=== PATIENT | male | born 1965 | race Caucasian/White ===

== ENCOUNTER 2019-02-05 16:15 | Emergency (ER) | payer OTHER ==
[2019-02-05] MEDS ORDERED: Sodium Chloride 0.9% 10 ML Syringe FLUSH PRN (16:32)
[2019-02-05] MEDS ORDERED: Sodium Chloride 0.9% 2.5 ML Syringe FLUSH PRN (16:32)
--- NOTE | 2019-02-05 16:33 | EDM.PDOC ---
ED HPI GENERAL MEDICAL PROBLEM - General Chief Complaint: Cardiovascular Problem Stated Complaint: SOB,CHEST PAIN Time Seen by Provider: 02/05/19 16:21 Source of Information: Reports: Patient History Limitations: Reports: No Limitations - History of Present Illness INITIAL COMMENTS - FREE TEXT/NARRATIVE: History of present illness: []Patient has had 5 days of intermittent left-sided chest pain across his upper pectoralis muscle area improves with raising his arm. He states this last episode started 2 hours ago while he was feeling stressed. He has a hiatal hernia and thought that it had been acting up in the last few days causing his discomfort. He denies any recent illnesses fevers chills cough or shortness of breath. He is refusing any medications including aspirin and nitroglycerin. Patient's usual blood pressure is 120s/70s but presented with 170/130. She also complains of muscle cramping. Review of systems: As per history of present illness and below otherwise all systems reviewed and negative. Past medical history: As per history of present illness and as reviewed below otherwise noncontributory. Surgical history: As per history of present illness and as reviewed below otherwise noncontributory. Social history: No reported history of drug or alcohol abuse. Family history: As per history of present illness and as reviewed below otherwise noncontributory. Physical exam: General: Well developed, well nourished in NAD HEENT: Atraumatic, normocephalic, pupils reactive, negative for conjunctival pallor or scleral icterus, mucous membranes moist, throat clear, neck supple, nontender, trachea midline. Lungs: Clear to auscultation, breath sounds equal bilaterally, chest nontender. Heart: S1S2, regular, negative for clicks, rubs, or JVD. Abdomen: NABS, Soft, nondistended, nontender. Negative for masses or hepatosplenomegaly. Negative for costovertebral tenderness. Pelvis: Stable nontender. Genitourinary: Deferred. Rectal: Deferred. Extremities: Atraumatic, negative for cords or calf pain. Neurovascular unremarkable. Neuro: Awake, alert, oriented. Cranial nerves II through XII unremarkable. Cerebellum unremarkable. Motor and sensory unremarkable throughout. Exam nonfocal. Skin:warm and dry Diagnostics: CBC, chest x-ray, chemistry, troponin, d-dimer, EKG Therapeutics: Patient refused aspirin and nitroglycerin, did get 1 dose of Lopressor IV ED Course: Stable Impression: Chest pain Prescriptions: Plan: Definitive disposition and diagnosis as appropriate pending reevaluation and review of above. 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 Gastrointestinal History: Reports: Hiatal Hernia Genitourinary History: Reports: Prostate Disorder Musculoskeletal History: Reports: None Neurological History: Reports: None Psychiatric History: Reports: Anxiety Endocrine/Metabolic History: Reports: Hypothyroidism Hematologic History: Reports: None Immunologic History: Reports: None Oncologic (Cancer) History: Reports: Other (See Below) Other Oncologic History: stage 3 testicular, stage 4 prostate cancer Dermatologic History: Reports: None - Infectious Disease History Infectious Disease History: Reports: Chicken Pox, Measles, Mumps - Past Surgical History Head Surgeries/Procedures: Reports: None HEENT Surgical History: Reports: None Cardiovascular Surgical History: Reports: None Respiratory Surgical History: Reports: None GI Surgical History: Reports: None Male Surgical History: Reports: Prostatectomy Endocrine Surgical History: Reports: None Neurological Surgical History: Reports: None Musculoskeletal Surgical History: Reports: None Oncologic Surgical History: Reports: None Dermatological Surgical History: Reports: None Social & Family History - Family History Family Medical History: Noncontributory - Tobacco Use Smoking Status *Q: Never Smoker Second Hand Smoke Exposure: No - Caffeine Use Caffeine Use: Reports: Coffee - Recreational Drug Use Recreational Drug Use: No ED ROS GENERAL - Review of Systems Review Of Systems: See Below ED EXAM, GENERAL - Physical Exam Exam: See Below Course - Vital Signs Last Recorded V/S: Last Vital Signs Temp 96.4 F 02/05/19 16:18 Pulse 68 02/05/19 16:43 Resp 18 02/05/19 16:43 BP 148/90 H 02/05/19 16:43 Pulse Ox 98 02/05/19 16:43 - Orders/Labs/Meds Orders: Active Orders 24 hr Category Date Time Status EKG Documentation Completion [RC] STAT Care 02/05/19 16:17 Active Sodium Chloride 0.9% [Normal Saline] 1,000 ml Med 02/05/19 17:25 Active IV .Bolus Sodium Chloride 0.9% [Saline Flush] Med 02/05/19 16:32 Active 10 ml FLUSH ASDIRECTED PRN Sodium Chloride 0.9% [Saline Flush] Med 02/05/19 16:32 Active 2.5 ml FLUSH ASDIRECTED PRN Saline Lock Insert [OM.PC] Stat Oth 02/05/19 16:32 Ordered Medication Orders Sodium Chloride (Normal Saline) 1,000 mls @ 999 mls/hr IV .Bolus ONE Stop: 02/05/19 18:25 Last Admin: 02/05/19 17:31 Dose: 999 mls/hr Sodium Chloride (Saline Flush) 10 ml FLUSH ASDIRECTED PRN PRN Reason: Keep Vein Open Last Admin: 02/05/19 16:36 Dose: 10 ml Sodium Chloride (Saline Flush) 2.5 ml FLUSH ASDIRECTED PRN PRN Reason: Keep Vein Open Last Admin: 02/05/19 16:36 Dose: 2.5 ml Labs: Laboratory Tests 02/05/19 02/05/19 02/05/19 Range/Units 16:20 16:20 16:20 WBC 5.94 (4.0-11.0) K/uL RBC 4.62 (4.50-5.90) M/uL Hgb 13.3 (13.0-17.0) g/dL Hct 41.0 (38.0-50.0) % MCV 88.7 (80.0-98.0) fL MCH 28.8 (27.0-32.0) pg MCHC 32.4 (31.0-37.0) g/dL RDW Std Deviation 46.0 (28.0-62.0) fl RDW Coeff of Srinivasa 14 (11.0-15.0) % Plt Count 231 (150-400) K/uL MPV 10.70 (7.40-12.00) fL Neut % (Auto) 70.2 (48.0-80.0) % Lymph % (Auto) 17.5 (16.0-40.0) % [place] % (Auto) 8.6 (0.0-15.0) % Eos % (Auto) 3.2 (0.0-7.0) % Baso % (Auto) 0.5 (0.0-1.5) % Neut # (Auto) 4.2 (1.4-5.7) K/uL Lymph # (Auto) 1.0 (0.6-2.4) K/uL [place] # (Auto) 0.5 (0.0-0.8) K/uL Eos # (Auto) 0.2 (0.0-0.7) K/uL Baso # (Auto) 0.0 (0.0-0.1) K/uL Nucleated RBC % 0.0 /100WBC Nucleated RBCs # 0 K/uL D-Dimer, Quantitative 0.23 (0.0-0.50) mg/L FEU Sodium 143 (136-148) mmol/L Potassium 4.0 (3.5-5.1) mmol/L Chloride 109 H (98-107) mmol/L Carbon Dioxide 23.3 (21.0-32.0) mmol/L BUN 22 H (7.0-18.0) mg/dL Creatinine 1.6 H (0.8-1.3) mg/dL Est Cr Clr Drug Dosing 72.53 mL/min Estimated GFR (MDRD) 45.1 ml/min Glucose 152 H (74-106) mg/dL Calcium 10.1 (8.5-10.1) mg/dL Total Bilirubin 0.6 (0.2-1.0) mg/dL AST 26 (15-37) IU/L ALT 29 (14-63) IU/L Alkaline Phosphatase 74 (46-116) U/L Troponin I < 0.050 (0.000-0.056) ng/mL Total Protein 7.3 (6.4-8.2) g/dL Albumin 4.0 (3.4-5.0) g/dL Globulin 3.3 (2.6-4.0) g/dL Albumin/Globulin Ratio 1.2 (0.9-1.6) Meds: Medications Generic Name Dose Route Start Last Admin Trade Name Freq PRN Reason Stop Dose Admin Sodium Chloride 1,000 mls @ 999 mls/hr 02/05/19 17:25 02/05/19 17:31 Normal Saline IV 02/05/19 18:25 999 mls/hr .Bolus ONE Administration Sodium Chloride 10 ml 02/05/19 16:32 02/05/19 16:36 Saline Flush FLUSH 10 ml ASDIRECTED PRN Administration Keep Vein Open Sodium Chloride 2.5 ml 02/05/19 16:32 02/05/19 16:36 Saline Flush FLUSH 2.5 ml ASDIRECTED PRN Administration Keep Vein Open Discontinued Medications Generic Name Dose Route Start Last Admin Trade Name Freq PRN Reason Stop Dose Admin Metoprolol Tartrate 5 mg 02/05/19 16:45 02/05/19 17:28 Lopressor IVPUSH 02/05/19 16:56 Not Given Q5M [place] Departure - Departure Time of Disposition: 17:43 Disposition: Against Medical Advice 07 Condition: Good, Fair Clinical Impression: Uncontrolled hypertension Chest pain Qualifiers: Chest pain type: unspecified Qualified Code(s): R07.9 - Chest pain, unspecified Referrals: PCP,Unknown [Primary Care Provider] - Forms: ED Department Discharge Additional Instructions: The following information is given to patients seen in the emergency department who are being discharged to home. This information is to outline your options for follow-up care. We provide all patients seen in our emergency department with a follow-up referral. The need for follow-up, as well as the timing and circumstances, are variable depending upon the specifics of your emergency department visit. If you don't have a primary care physician on staff, we will provide you with a referral. We always advise you to contact your personal physician following an emergency department visit to inform them of the circumstance of the visit and for follow-up with them and/or the need for any referrals to a consulting specialist. The emergency department will also refer you to a specialist when appropriate. This referral assures that you have the opportunity for follow-up care with a specialist. All of these measure are taken in an effort to provide you with optimal care, which includes your follow-up. Under all circumstances we always encourage you to contact your private physician who remains a resource for coordinating your care. When calling for follow-up care, please make the office aware that this follow-up is from your recent emergency room visit. If for any reason you are refused follow-up, please contact the [facility] Emergency Department at and asked to speak to the emergency department charge nurse. Take meds as directed, follow up with your primary care physician, return to ER if symptoms worsen or change. Take baby aspirin daily if tolerated. [facility] [address] [place] [id number] - My Orders Last 24 Hours: My Active Orders 02/05/19 16:32 Sodium Chloride 0.9% [Saline Flush] 10 ml FLUSH ASDIRECTED PRN Sodium Chloride 0.9% [Saline Flush] 2.5 ml FLUSH ASDIRECTED PRN Saline Lock Insert [OM.PC] Stat 02/05/19 17:25 Sodium Chloride 0.9% [Normal Saline] 1,000 ml IV .Bolus - Assessment/Plan Last 24 Hours: My Active Orders 02/05/19 16:32 Sodium Chloride 0.9% [Saline Flush] 10 ml FLUSH ASDIRECTED PRN Sodium Chloride 0.9% [Saline Flush] 2.5 ml FLUSH ASDIRECTED PRN Saline Lock Insert [OM.PC] Stat 02/05/19 17:25 Sodium Chloride 0.9% [Normal Saline] 1,000 ml IV .Bolus
[2019-02-05] MEDS: Metoprolol Tartrate 5 MG/5 ML SDV IVPUSH SCH ×2 (16:35→17:28)
--- NOTE | 2019-02-05 16:58 | CR ---
Indication: Shortness of breath. Technique: Single AP portable view of the chest was obtained. Comparison: None Findings: Mild levoscoliosis of the thoracic spine is identified. Heart is normal in size. The lungs are clear. No infiltrate, pleural effusion, or pneumothorax is identified. Impression: No acute cardiopulmonary process. Dictated by Kathrin Mccabe MD @ Feb 05 2019 4:56PM Signed by Dr. Kathrin Mccabe @ Feb 05 2019 4:57PM
[2019-02-05 17:15] LABS: BLOOD UREA NITROGEN,BUN 22 mg/dL (7.0-18.0); CARBON DIOXIDE,CO2 23.3 mmol/L (21.0-32.0); CHLORIDE,CL 109 mmol/L (98-107); GLUCOSE RANDOM 152 mg/dL (74-106); SODIUM,NA 143 mmol/L (136-148)
[2019-02-05] MEDS ORDERED: Sodium Chloride 0.9% 1,000 ML IV ONE (17:25)
== END 2019-02-05 17:47 | disposition left against medical advice (07) ==
LOC: MW.ED 16:15
DX: R07.9 Chest pain, unspecified (principal); I10 Essential (primary) hypertension; E03.9 Hypothyroidism, unspecified; Z79.899 Other long term (current) drug therapy; Z90.79 Acquired absence of other genital organ(s)
CPT/HCPCS: 71045; 80053; 84484; 85025; 85379; 93005; 96374; 99285; J3490; J7040

== ENCOUNTER 2019-08-22 18:40 | Emergency (ER) | payer OTHER ==
--- NOTE | 2019-08-22 19:29 | EDM.PDOC ---
ED HPI GENERAL MEDICAL PROBLEM - General Chief Complaint: Genitourinary Problem Stated Complaint: BLOOD IN URINE Time Seen by Provider: 08/22/19 19:28 Source of Information: Reports: Patient History Limitations: Reports: No Limitations - History of Present Illness INITIAL COMMENTS - FREE TEXT/NARRATIVE: HISTORY AND PHYSICAL: History of present illness: Patient is a 54-year-old male presents to the ED with complaint of blood in his urine. Patient states he just drove up from [place] and since being home he has had multiple bloody urinations with a small amount of clotting. Patient has a history of prostate cancer in 2017 and had undergone radiation. He states he is in remission but had trouble with proctitis after the radiation and was told he could develop cystitis as well. He states states he does not have a lot of feeling in his genital area due to the radiation and does have a penis implant but states he has a little bit of burning with urination. Patient states he has only had diet soda to drink in the last 24 hours and has not hydrated well. He denies fevers, chills, nausea, vomiting, diarrhea, abdominal pain, flank pain, cough, chest pain, shortness of breath. Patient does follow up with Dr. Sosa. Review of systems: As per history of present illness and below otherwise all systems reviewed and negative. Past medical history: As per history of present illness and as reviewed below otherwise noncontributory. Surgical history: As per history of present illness and as reviewed below otherwise noncontributory. Social history: No reported history of drug or alcohol abuse. Family history: As per history of present illness and as reviewed below otherwise noncontributory. Physical exam: General: Patient sitting comfortably in no acute distress and nontoxic appearing HEENT: Atraumatic, normocephalic, pupils reactive, negative for conjunctival pallor or scleral icterus, mucous membranes moist, throat clear, neck supple, nontender, trachea midline. No meningeal signs. Lungs: Clear to auscultation, breath sounds equal bilaterally, chest nontender. Heart: S1S2, regular, negative for clicks, rubs, or overt murmur. Abdomen: Soft, nondistended, nontender. Negative for masses or hepatosplenomegaly. Negative for costovertebral tenderness. No rigidity, rebound , guarding. Pelvis: Stable nontender. Genitourinary: Deferred. Rectal: Deferred. Extremities: Atraumatic, negative for cords or calf pain. Neurovascular unremarkable. Neuro: Awake, alert, oriented. Cranial nerves II through XII unremarkable. Cerebellum unremarkable. Motor and sensory unremarkable throughout. Exam nonfocal. Notes: Diagnostics: UA, CBC, CMP Therapeutics: 1L NS IV Prescriptions: Bactrim Impression: UTI, gross hematuria Plan: Drink plenty of fluids and take antibiotic as prescribed Follow up with urology, please call the number provided to schedule an appointment Return to ED as needed as discussed Definitive disposition and diagnosis as appropriate pending reevaluation and review of above. - Related Data Allergies Allergy/AdvReac Type Severity Reaction Status Date / Time No Known Allergies Allergy Verified 08/22/19 19:32 Home Meds: Home Meds Levothyroxine 50 mcg PO DAILY 02/05/19 [History] Testosterone 1 dose TOP DAILY 02/05/19 [History] Aspirin [Ecotrin EC] 81 mg PO DAILY 08/22/19 [History] Cholecalciferol (Vitamin D3) [Vitamin D] 1,000 units PO DAILY 08/22/19 [History] Fish Oil/[place]-3 Fatty Acids [Fish Oil 1,000 MG] 1,000 units PO DAILY 08/22/19 [ History] Multivit with Iron,Minerals [Complete Senior] 1 tab PO DAILY 08/22/19 [History] Quercetin Dihydrate 1 tab PO DAILY 08/22/19 [History] Past Medical History HEENT History: Reports: None Cardiovascular History: Reports: Other (See Below) Other Cardiovascular History: hx of having "heart episodes" Respiratory History: Reports: None, Pulmonary Fibrosis, Other (See Below) 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 Gastrointestinal History: Reports: Hiatal Hernia Genitourinary History: Reports: Prostate Disorder Musculoskeletal History: Reports: None Neurological History: Reports: None Psychiatric History: Reports: Anxiety Endocrine/Metabolic History: Reports: Hypothyroidism Hematologic History: Reports: None Immunologic History: Reports: None Oncologic (Cancer) History: Reports: Other (See Below) Other Oncologic History: stage 3 testicular, stage 4 prostate cancer Dermatologic History: Reports: None - Infectious Disease History Infectious Disease History: Reports: Chicken Pox, Measles, Mumps - Past Surgical History Head Surgeries/Procedures: Reports: None HEENT Surgical History: Reports: None Cardiovascular Surgical History: Reports: None Respiratory Surgical History: Reports: None GI Surgical History: Reports: None Male Surgical History: Reports: Prostatectomy Endocrine Surgical History: Reports: None Neurological Surgical History: Reports: None Musculoskeletal Surgical History: Reports: None Oncologic Surgical History: Reports: None Dermatological Surgical History: Reports: None Social & Family History - Family History Family Medical History: Noncontributory - Caffeine Use Caffeine Use: Reports: Coffee ED ROS GENERAL - Review of Systems Review Of Systems: Comprehensive ROS is negative, except as noted in HPI. ED EXAM, RENAL/ - Physical Exam Exam: See Below (see dictation) Course - Vital Signs Last Recorded V/S: Last Vital Signs Temp 96.9 F 08/22/19 19:26 Pulse 68 08/22/19 19:26 Resp 18 08/22/19 19:26 BP 137/95 H 08/22/19 19:26 Pulse Ox 96 08/22/19 19:26 - Orders/Labs/Meds Orders: Active Orders 24 hr Category Date Time Status CULTURE URINE [RM] Stat Lab 08/22/19 20:45 Received Sodium Chloride 0.9% [Saline Flush] Med 08/22/19 19:59 Active 10 ml FLUSH ASDIRECTED PRN Sodium Chloride 0.9% [Saline Flush] Med 08/22/19 19:59 Active 2.5 ml FLUSH ASDIRECTED PRN Saline Lock Insert [OM.PC] Stat Oth 08/22/19 19:59 Ordered Medication Orders Sodium Chloride (Saline Flush) 10 ml FLUSH ASDIRECTED PRN PRN Reason: Keep Vein Open Sodium Chloride (Saline Flush) 2.5 ml FLUSH ASDIRECTED PRN PRN Reason: Keep Vein Open Labs: Laboratory Tests 08/22/19 08/22/19 08/22/19 Range/Units 20:00 20:00 20:45 WBC 4.55 (4.0-11.0) K/uL RBC 4.64 (4.50-5.90) M/uL Hgb 13.6 (13.0-17.0) g/dL Hct 40.9 (38.0-50.0) % MCV 88.1 (80.0-98.0) fL MCH 29.3 (27.0-32.0) pg MCHC 33.3 (31.0-37.0) g/dL RDW Std Deviation 44.1 (28.0-62.0) fl RDW Coeff of Srinivasa 14 (11.0-15.0) % Plt Count 210 (150-400) K/uL MPV 10.90 (7.40-12.00) fL Neut % (Auto) 59.8 (48.0-80.0) % Lymph % (Auto) 23.3 (16.0-40.0) % [place] % (Auto) 11.4 (0.0-15.0) % Eos % (Auto) 5.1 (0.0-7.0) % Baso % (Auto) 0.4 (0.0-1.5) % Neut # (Auto) 2.7 (1.4-5.7) K/uL Lymph # (Auto) 1.1 (0.6-2.4) K/uL [place] # (Auto) 0.5 (0.0-0.8) K/uL Eos # (Auto) 0.2 (0.0-0.7) K/uL Baso # (Auto) 0.0 (0.0-0.1) K/uL Nucleated RBC % 0.0 /100WBC Nucleated RBCs # 0 K/uL Sodium 143 (136-148) mmol/L Potassium 3.9 (3.5-5.1) mmol/L Chloride 106 (98-107) mmol/L Carbon Dioxide 25.9 (21.0-32.0) mmol/L BUN 15 (7.0-18.0) mg/dL Creatinine 1.4 H (0.8-1.3) mg/dL Est Cr Clr Drug Dosing 82.89 mL/min Estimated GFR (MDRD) 52.6 ml/min Glucose 111 H (74-106) mg/dL Calcium 9.0 (8.5-10.1) mg/dL Total Bilirubin 0.5 (0.2-1.0) mg/dL AST 27 (15-37) IU/L ALT 45 (14-63) IU/L Alkaline Phosphatase 71 (46-116) U/L Total Protein 6.7 (6.4-8.2) g/dL Albumin 3.7 (3.4-5.0) g/dL Globulin 3.0 (2.6-4.0) g/dL Albumin/Globulin Ratio 1.2 (0.9-1.6) Urine Color RED Urine Appearance BLOODY Urine pH 6.5 (5.0-8.0) Ur Specific [place] 1.015 (1.001-1.035) Urine Protein >=300 H (NEGATIVE) mg/dL Urine Glucose (UA) 100 H (NEGATIVE) mg/dL Urine Ketones 15 H (NEGATIVE) mg/dL Urine Occult Blood LARGE H (NEGATIVE) Urine Nitrite POSITIVE H (NEGATIVE) Urine Bilirubin SMALL H (NEGATIVE) Urine Ictotest NEGATIVE Urine Urobilinogen 4.0 H (<2.0) EU/dL Ur Leukocyte Esterase MODERATE H (NEGATIVE) Urine RBC TOO NUMEROUS TO CT (0-2/HPF) Urine WBC 2-3 (0-5/HPF) Ur Epithelial Cells NOT SEEN (NONE-FEW) Urine Bacteria FEW (NEGATIVE) Meds: Medications Generic Name Dose Route Start Last Admin Trade Name Freq PRN Reason Stop Dose Admin Sodium Chloride 10 ml 08/22/19 19:59 Saline Flush FLUSH ASDIRECTED PRN Keep Vein Open Sodium Chloride 2.5 ml 08/22/19 19:59 Saline Flush FLUSH ASDIRECTED PRN Keep Vein Open Discontinued Medications Generic Name Dose Route Start Last Admin Trade Name Freq PRN Reason Stop Dose Admin Sodium Chloride 1,000 mls @ 999 mls/hr 08/22/19 19:59 08/22/19 20:05 Normal Saline IV 08/22/19 20:59 999 mls/hr STAT ONE Administration Departure - Departure Time of Disposition: 21:15 Disposition: Home, Self-Care 01 Condition: Good Clinical Impression: UTI (urinary tract infection), Gross hematuria - Discharge Information Referrals: PCP,None [Primary Care Provider] - Forms: ED Department Discharge Additional Instructions: The following information is given to patients seen in the emergency department who are being discharged to home. This information is to outline your options for follow-up care. We provide all patients seen in our emergency department with a follow-up referral. The need for follow-up, as well as the timing and circumstances, are variable depending upon the specifics of your emergency department visit. If you don't have a primary care physician on staff, we will provide you with a referral. We always advise you to contact your personal physician following an emergency department visit to inform them of the circumstance of the visit and for follow-up with them and/or the need for any referrals to a consulting specialist. The emergency department will also refer you to a specialist when appropriate. This referral assures that you have the opportunity for follow-up care with a specialist. All of these measure are taken in an effort to provide you with optimal care, which includes your follow-up. Under all circumstances we always encourage you to contact your private physician who remains a resource for coordinating your care. When calling for follow-up care, please make the office aware that this follow-up is from your recent emergency room visit. If for any reason you are refused follow-up, please contact the [facility] Emergency Department at and asked to speak to the emergency department charge nurse. [facility] [address] [place] [address] [id number] [address] [address] Drink plenty of fluids and take antibiotic as prescribed Follow up with urology, please call the number provided to schedule an appointment Return to ED as needed as discussed Sepsis Event Note - Focused Exam Vital Signs: Vital Signs Temp Pulse Resp BP Pulse Ox 08/22/19 19:26 96.9 F 68 18 137/95 H 96 Date Exam was Performed: 08/22/19 Time Exam was Performed: 21:12 - My Orders Last 24 Hours: My Active Orders 08/22/19 19:59 Sodium Chloride 0.9% [Saline Flush] 10 ml FLUSH ASDIRECTED PRN Sodium Chloride 0.9% [Saline Flush] 2.5 ml FLUSH ASDIRECTED PRN Saline Lock Insert [OM.PC] Stat 08/22/19 20:45 CULTURE URINE [RM] Stat - Assessment/Plan Last 24 Hours: My Active Orders 08/22/19 19:59 Sodium Chloride 0.9% [Saline Flush] 10 ml FLUSH ASDIRECTED PRN Sodium Chloride 0.9% [Saline Flush] 2.5 ml FLUSH ASDIRECTED PRN Saline Lock Insert [OM.PC] Stat 08/22/19 20:45 CULTURE URINE [RM] Stat
[2019-08-22] MEDS ORDERED: Sodium Chloride 0.9% 1,000 ML IV ONE (19:59)
[2019-08-22] MEDS ORDERED: Sodium Chloride 0.9% 2.5 ML Syringe FLUSH PRN (19:59)
[2019-08-22] MEDS ORDERED: Sodium Chloride 0.9% 10 ML Syringe FLUSH PRN (19:59)
[2019-08-22 20:35] LABS: CARBON DIOXIDE,CO2 25.9 mmol/L (21.0-32.0); POTASSIUM,K 3.9 mmol/L (3.5-5.1)
== END 2019-08-22 21:35 | disposition home or self-care (01) ==
LOC: MW.ED 18:40
DX: N39.0 Urinary tract infection, site not specified (principal); R31.0 Gross hematuria; E03.9 Hypothyroidism, unspecified; Z79.899 Other long term (current) drug therapy; Z79.82 Long term (current) use of aspirin; Z85.46 Personal history of malignant neoplasm of prostate
CPT/HCPCS: 36415; 80053; 81001; 85025; 87086; 96360; 99283-25; J7030

== ENCOUNTER 2020-04-05 08:51 | Inpatient (IN) | payer OTHER ==
[2020-04-05] MEDS ORDERED: Sodium Chloride 0.9% 2.5 ML Syringe FLUSH PRN (09:04)
[2020-04-05] MEDS ORDERED: Sodium Chloride 0.9% 10 ML Syringe FLUSH PRN (09:04)
--- NOTE | 2020-04-05 09:08 | EDM.PDOC ---
ED [facility] GENERAL MEDICAL PROBLEM - General Chief Complaint: Respiratory Problem Stated Complaint: COVID Time Seen by Provider: 04/05/20 09:03 Source of Information: Reports: Patient, Old Records History Limitations: Reports: No Limitations - History of Present Illness INITIAL COMMENTS - FREE TEXT/NARRATIVE: This is a very pleasant 55-year-old man with a past medical history of met astatic prostate cancer (not on chemotherapy or radiation), hypertension, pulmonary fibrosis from bleomycin therapy, depression, hypothyroidism presenting with shortness of breath. He was diagnosed with COVID-19 infection 2 weeks ago at [place]. He reports feeling unwell since the time of diagnosis. Reports worsening shortness of breath over the past 2 weeks. This got markedly worse today which prompted him to call the ambulance. He reports intermittent cough, diarrhea, body aches. His was ill with COVID-19 but has recovered. Primary complaint today is worsening dyspnea. ROS: A 10-point review of systems was negative, except as noted in the HPI (or in the ROS section of this note). Past medical history: Reviewed, no additional pertinent history. Surgical history: Reviewed in system, no additional pertinent history. Social history: Reviewed in system, no additional pertinent history. Family history: Reviewed in system, no additional pertinent history. PHYSICAL EXAM Vital signs reviewed. Nursing notes reviewed. Constitutional: Awake, alert, non-distressed. Head: Normocephalic, atraumatic. Neck: Supple, full range of motion Eyes: EOMI, conjunctiva normal, no discharge, no scleral icterus. Ears, Nose, Throat: External ears and nose normal, moist oral mucosa. Cardiovascular: 2+ radial pulse, capillary refill less than 2 seconds. No lower extremity edema. Pulmonary: Tachypneic, speaking in 4-5 word sentences, nonrebreather mask in place by EMS. Abdomen/GI: Soft, nontender, nondistended, no guarding or rigidity, no masses. Musculoskeletal: No deformities. Integumentary: Appropriate color for ethnicity, warm, dry, no pallor or jaundice, no rash. Neurologic: Alert, answering questions appropriately, normal speech, no facial droop, moving all extremities well. Psychiatric: Appropriate mood and affect, normal thought process. This patient was seen and evaluated during the 2019 SARS-CoV-2 novel coronavirus pandemic period. Community viral transmission is ongoing at time of this encounter and the emergency department is operating under pandemic response procedures. joints, body Pain Score (Numeric/FACES): 6 - Related Data Allergies Allergy/AdvReac Type Severity Reaction Status Date / Time No Known Allergies Allergy Verified 04/05/20 09:04 Home Meds: Home Meds Levothyroxine 50 mcg PO DAILY 02/05/19 [History] Aspirin [Ecotrin EC] 81 mg PO DAILY 08/22/19 [History] Cholecalciferol (Vitamin D3) [Vitamin D] 5,000 units PO DAILY 08/22/19 [History] Docusate Sodium [Colace] 100 mg PO DAILY 04/05/20 [History] Famotidine [Pepcid] 20 mg PO DAILY 04/05/20 [History] Past Medical History HEENT History: Reports: None Cardiovascular History: Reports: Other (See Below) Other Cardiovascular History: hx of having "heart episodes" Respiratory History: Reports: None, Pulmonary Fibrosis, Other (See Below) 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 Gastrointestinal History: Reports: Hiatal Hernia Genitourinary History: Reports: Prostate Disorder Other Genitourinary History: prostate and testicular CA Musculoskeletal History: Reports: None Neurological History: Reports: None Psychiatric History: Reports: Anxiety Endocrine/Metabolic History: Reports: Hypothyroidism Hematologic History: Reports: None Immunologic History: Reports: None Oncologic (Cancer) History: Reports: Other (See Below) Other Oncologic History: stage 3 testicular, stage 4 prostate cancer Dermatologic History: Reports: None - Infectious Disease History Infectious Disease History: Reports: Chicken Pox, Measles, Mumps, Novel Coronavirus - Past Surgical History Head Surgeries/Procedures: Reports: None HEENT Surgical History: Reports: None Cardiovascular Surgical History: Reports: None Respiratory Surgical History: Reports: None GI Surgical History: Reports: None Male Surgical History: Reports: Prostatectomy Endocrine Surgical History: Reports: None Neurological Surgical History: Reports: None Musculoskeletal Surgical History: Reports: None Oncologic Surgical History: Reports: None Dermatological Surgical History: Reports: None Social & Family History - Family History Family Medical History: No Pertinent Family History - Tobacco Use Tobacco Use Status *Q: Never Tobacco User - Caffeine Use Caffeine Use: Reports: Coffee - Recreational Drug Use Recreational Drug Use: No ED ROS GENERAL - Review of Systems Review Of Systems: See Below ED EXAM, GENERAL - Physical Exam Exam: See Below #1 Interpretation EKG Interpretation Comments: 12-Lead ECG Interpretation Acquired: 9:23 AM Rhythm: Sinus rhythm Rate: 73 bpm [place]: Normal Intervals: Normal Ectopy: None RV Strain: No obvious RV strain pattern. ST Segments/T-Waves: No notable changes Acute Ischemic Changes: None apparent Interpretation: No STEMI Course - Vital Signs Text/Narrative:: Differential diagnosis includes but is not limited to: COVID-19 pneumonia, CHF, ACS, PE, pneumonia, pneumothorax, asthma exacerbation, COPD exacerbation, pleural effusion, pericardial effusion, pericarditis, viral URI, influenza, bronchitis, airway foreign body, anxiety state, and many others. Tachypneic on arrival with moderate respiratory distress. Placed on oxygen. IV access established and labs sent. 1 view chest x-ray shows peripheral opacities bilaterally, consistent with known COVID-19 infection. Labs are otherwise reassuring. Normal cell lines, normal electrolytes and renal function. Negative troponin and BNP, normal TSH. 2 sets of blood cultures were sent. 10:56 AM: Oxygen saturations improved on nasal cannula the patient is still tachypneic and has moderate respiratory distress. I do not think he needs BiPAP right now. We are going to give him dexamethasone and remdesivir, discussed risks and benefits and he gave verbal consent. We will plan to admit him to the hospital here if we have Covid bed availability. Page out to Dr. Arellano the hospitalist at [phone]. 12:24 PM: We are still planning for admission. I spoke with the hospitalist Dr. Jose Arellano who agrees to admit. Patient is currently on 6 L by nasal cannula oxygen. We are waiting for an inpatient bed to be ready. Admitted without incident. Last Recorded V/S: Last Vital Signs Temp 35.7 C L 04/05/20 08:55 Pulse 88 04/05/20 15:00 Resp 18 04/05/20 15:00 BP 110/68 04/05/20 15:00 Pulse Ox 98 04/05/20 15:00 - Orders/Labs/Meds Orders: Active Orders 24 hr Category Date Time Status Cardiac Monitoring [RC] . DIRECTED Care 04/05/20 09:05 Active EKG Documentation Completion [RC] STAT Care 04/05/20 09:05 Active Oxygen Therapy, ED [RC] ASDIRECTED Care 04/05/20 09:04 Active Pulse Oximetry [RC] ASDIRECTED Care 04/05/20 09:05 Active CULTURE BLOOD [BC] Stat Lab 04/05/20 09:08 Received CULTURE BLOOD [BC] Stat Lab 04/05/20 10:06 Results Sodium Chloride 0.9% [Saline Flush] Med 04/05/20 09:04 Active 10 ml FLUSH ASDIRECTED PRN Sodium Chloride 0.9% [Saline Flush] Med 04/05/20 09:04 Active 2.5 ml FLUSH ASDIRECTED PRN Blood Culture x2 Reflex Set [OM.PC] Stat Oth 04/05/20 09:04 Ordered Saline Lock Insert [OM.PC] Stat Oth 04/05/20 09:04 Ordered Medication Orders Sodium Chloride (Saline Flush) 10 ml FLUSH ASDIRECTED PRN PRN Reason: Keep Vein Open Sodium Chloride (Saline Flush) 2.5 ml FLUSH ASDIRECTED PRN PRN Reason: Keep Vein Open Labs: Laboratory Tests 04/05/20 04/05/20 04/05/20 Range/Units 09:08 09:08 09:08 WBC 4.97 (4.0-11.0) K/uL RBC 4.61 (4.50-5.90) M/uL Hgb 13.5 (13.0-17.0) g/dL Hct 40.8 (38.0-50.0) % MCV 88.5 (80.0-98.0) fL MCH 29.3 (27.0-32.0) pg MCHC 33.1 (31.0-37.0) g/dL RDW Std Deviation 44.4 (28.0-62.0) fl RDW Coeff of Srinivasa 14 (11.0-15.0) % Plt Count 191 (150-400) K/uL MPV 10.10 (7.40-12.00) fL Neut % (Auto) 83.9 H (48.0-80.0) % Lymph % (Auto) 10.5 L (16.0-40.0) % [place]ila % (Auto) 5.4 (0.0-15.0) % Eos % (Auto) 0.2 (0.0-7.0) % Baso % (Auto) 0.0 (0.0-1.5) % Neut # (Auto) 4.2 (1.4-5.7) K/uL Lymph # (Auto) 0.5 L (0.6-2.4) K/uL [place] # (Auto) 0.3 (0.0-0.8) K/uL Eos # (Auto) 0.0 (0.0-0.7) K/uL Baso # (Auto) 0.0 (0.0-0.1) K/uL Nucleated RBC % 0.0 /100WBC Nucleated RBCs # 0 K/uL INR 1.03 Lactate 1.4 (0.20-2.00) mmol/L Sodium (136-148) mmol/L Potassium (3.5-5.1) mmol/L Chloride (98-107) mmol/L Carbon Dioxide (21.0-32.0) mmol/L BUN (7.0-18.0) mg/dL Creatinine (0.8-1.3) mg/dL Est Cr Clr Drug Dosing mL/min Estimated GFR (MDRD) ml/min Glucose (74-106) mg/dL Calcium (8.5-10.1) mg/dL Total Bilirubin (0.2-1.0) mg/dL AST (15-37) IU/L ALT (14-63) IU/L Alkaline Phosphatase (46-116) U/L Troponin I (0.000-0.056) ng/mL B-Natriuretic Peptide (<100) PG/ML Total Protein (6.4-8.2) g/dL Albumin (3.4-5.0) g/dL Globulin (2.6-4.0) g/dL Albumin/Globulin Ratio (0.9-1.6) TSH 3rd Generation (0.36-3.74) uIU/mL 04/05/20 04/05/20 Range/Units 09:08 09:08 WBC (4.0-11.0) K/uL RBC (4.50-5.90) M/uL Hgb (13.0-17.0) g/dL Hct (38.0-50.0) % MCV (80.0-98.0) fL MCH (27.0-32.0) pg MCHC (31.0-37.0) g/dL RDW Std Deviation (28.0-62.0) fl RDW Coeff of Srinivasa (11.0-15.0) % Plt Count (150-400) K/uL MPV (7.40-12.00) fL Neut % (Auto) (48.0-80.0) % Lymph % (Auto) (16.0-40.0) % Gila % (Auto) (0.0-15.0) % Eos % (Auto) (0.0-7.0) % Baso % (Auto) (0.0-1.5) % Neut # (Auto) (1.4-5.7) K/uL Lymph # (Auto) (0.6-2.4) K/uL [place] # (Auto) (0.0-0.8) K/uL Eos # (Auto) (0.0-0.7) K/uL Baso # (Auto) (0.0-0.1) K/uL Nucleated RBC % /100WBC Nucleated RBCs # K/uL INR Lactate (0.20-2.00) mmol/L Sodium 136 (136-148) mmol/L Potassium 3.7 (3.5-5.1) mmol/L Chloride 102 (98-107) mmol/L Carbon Dioxide 21.0 (21.0-32.0) mmol/L BUN 25 H (7.0-18.0) mg/dL Creatinine 1.3 (0.8-1.3) mg/dL Est Cr Clr Drug Dosing 88.22 mL/min Estimated GFR (MDRD) 57.1 ml/min Glucose 112 H (74-106) mg/dL Calcium 8.7 (8.5-10.1) mg/dL Total Bilirubin 0.7 (0.2-1.0) mg/dL AST 41 H (15-37) IU/L ALT 47 (14-63) IU/L Alkaline Phosphatase 76 (46-116) U/L Troponin I < 0.050 (0.000-0.056) ng/mL B-Natriuretic Peptide 21 (<100) PG/ML Total Protein 7.4 (6.4-8.2) g/dL Albumin 3.2 L (3.4-5.0) g/dL Globulin 4.2 H (2.6-4.0) g/dL Albumin/Globulin Ratio 0.8 L (0.9-1.6) TSH 3rd Generation 3.11 (0.36-3.74) uIU/mL Meds: Medications Generic Name Dose Route Start Last Admin Trade Name Freq PRN Reason Stop Dose Admin Sodium Chloride 10 ml 04/05/20 09:04 Saline Flush FLUSH ASDIRECTED PRN Keep Vein Open Sodium Chloride 2.5 ml 04/05/20 09:04 Saline Flush FLUSH ASDIRECTED PRN Keep Vein Open Discontinued Medications Generic Name Dose Route Start Last Admin Trade Name Freq PRN Reason Stop Dose Admin Dexamethasone 6 mg 04/05/20 10:55 04/05/20 11:47 Decadron IVPUSH 04/05/20 10:56 6 mg ONETIME ONE Administration Remdesivir 200 mg/ Sodium 250 mls @ 250 mls/hr 04/05/20 10:56 04/05/20 11:49 Chloride IV 04/05/20 10:57 250 mls/hr ONETIME ONE Administration Departure - Departure Time of Disposition: 12:25 Disposition: Admitted As Inpatient 65 Condition: Good Clinical Impression: COVID-19 virus infection, Hypoxia - Discharge Information Sepsis Event Note (ED) - Evaluation Sepsis Screening Result: Possible Sepsis Risk - Focused Exam Vital Signs: Vital Signs Temp Pulse Resp BP Pulse Ox 04/05/20 09:45 71 20 124/84 94 L 04/05/20 08:55 35.7 C L 74 24 H 95 - My Orders Last 24 Hours: My Active Orders 04/05/20 09:04 Oxygen Therapy, ED [RC] ASDIRECTED Sodium Chloride 0.9% [Saline Flush] 10 ml FLUSH ASDIRECTED PRN Sodium Chloride 0.9% [Saline Flush] 2.5 ml FLUSH ASDIRECTED PRN Blood Culture x2 Reflex Set [OM.PC] Stat Saline Lock Insert [OM.PC] Stat 04/05/20 09:05 Cardiac Monitoring [RC] . DIRECTED EKG Documentation Completion [RC] STAT Pulse Oximetry [RC] ASDIRECTED 04/05/20 09:08 CULTURE BLOOD [BC] Stat 04/05/20 10:06 CULTURE BLOOD [BC] Stat - Assessment/Plan Last 24 Hours: My Active Orders 04/05/20 09:04 Oxygen Therapy, ED [RC] ASDIRECTED Sodium Chloride 0.9% [Saline Flush] 10 ml FLUSH ASDIRECTED PRN Sodium Chloride 0.9% [Saline Flush] 2.5 ml FLUSH ASDIRECTED PRN Blood Culture x2 Reflex Set [OM.PC] Stat Saline Lock Insert [OM.PC] Stat 04/05/20 09:05 Cardiac Monitoring [RC] . DIRECTED EKG Documentation Completion [RC] STAT Pulse Oximetry [RC] ASDIRECTED 04/05/20 09:08 CULTURE BLOOD [BC] Stat 04/05/20 10:06 CULTURE BLOOD [BC] Stat
[2020-04-05 09:47] LABS: BLOOD UREA NITROGEN,BUN 25 mg/dL (7.0-18.0); CHLORIDE,CL 102 mmol/L (98-107); GLUCOSE RANDOM 112 mg/dL (74-106); POTASSIUM,K 3.7 mmol/L (3.5-5.1); SODIUM,NA 136 mmol/L (136-148)
--- NOTE | 2020-04-05 10:20 | CR ---
Indication: Worsening dyspnea. Hypoxia. Technique: AP portable view of the chest. Comparison: February 05, 2019. Findings: Heart is normal in size. The right hemidiaphragm is elevated. Peripheral opacities are identified bilaterally. No infiltrate, pleural effusion, pneumothorax identified. Impression: Peripheral opacities bilaterally, consistent with [place] Dictated by Kathrin Mccabe MD @ Apr 05 2020 10:17AM Signed by Dr. Kathrin Mccabe @ Apr 05 2020 10:18AM
[2020-04-05] MEDS ORDERED: Dexamethasone 10 MG/ML SDV IVPUSH ONE (10:55)
[2020-04-05] MEDS ORDERED: REMDESIVIR 200 MG in Sodium Chloride 0.9% 250 ML IV ONE (10:56)
[2020-04-05] MEDS ORDERED: Ondansetron 4 MG/2 ML SDV IVPUSH PRN (17:55)
--- NOTE | 2020-04-05 18:05 | PCM.HP.2 ---
H&P History of Present Illness - General Date of Service: 04/05/20 Admit Problem/Dx: Admission Diagnosis/Problem Admission Diagnosis/Problem Hypoxia - History of Present Illness Initial Comments - Free Text/Narative: 55 yo male with pmh of HTN, testicular and prostate cancer with pulmonary fibrosis 2/2 to chemotherapy who presents with several weeks of shortness of breath, headache and fevers. Patient tested positive for COVID five days ago. In the ED he was found to have an O2 sat of 88% on RA. Chest x-ray shows bilateral peripheral opacities. joints, body Pain Score (Numeric/FACES): 6 - Related Data Allergies/Adverse Reactions: Allergies Allergy/AdvReac Type Severity Reaction Status Date / Time No Known Allergies Allergy Verified 04/05/20 09:04 Home Medications: Home Meds Levothyroxine 50 mcg PO DAILY 02/05/19 [History] Aspirin [Ecotrin EC] 81 mg PO DAILY 08/22/19 [History] Cholecalciferol (Vitamin D3) [Vitamin D] 5,000 units PO DAILY 08/22/19 [History] Docusate Sodium [Colace] 100 mg PO DAILY 04/05/20 [History] Famotidine [Pepcid] 20 mg PO DAILY 04/05/20 [History] Past Medical History HEENT History: Reports: None Cardiovascular History: Reports: Other (See Below) Other Cardiovascular History: hx of having "heart episodes" Respiratory History: Reports: None, Pulmonary Fibrosis, Other (See Below) 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 Gastrointestinal History: Reports: Hiatal Hernia Genitourinary History: Reports: Prostate Disorder Other Genitourinary History: prostate and testicular CA Musculoskeletal History: Reports: None Neurological History: Reports: None Psychiatric History: Reports: Anxiety Endocrine/Metabolic History: Reports: Hypothyroidism Hematologic History: Reports: None Immunologic History: Reports: None Oncologic (Cancer) History: Reports: Other (See Below) Other Oncologic History: stage 3 testicular, stage 4 prostate cancer Dermatologic History: Reports: None - Infectious Disease History Infectious Disease History: Reports: Chicken Pox, Measles, Mumps, Novel Coronavirus - Past Surgical History Head Surgeries/Procedures: Reports: None HEENT Surgical History: Reports: None Cardiovascular Surgical History: Reports: None Respiratory Surgical History: Reports: None GI Surgical History: Reports: None Male Surgical History: Reports: Prostatectomy Endocrine Surgical History: Reports: None Neurological Surgical History: Reports: None Musculoskeletal Surgical History: Reports: None Oncologic Surgical History: Reports: None Dermatological Surgical History: Reports: None Social & Family History - Family History Family Medical History: No Pertinent Family History - Tobacco Use Tobacco Use Status *Q: Never Tobacco User Second Hand Smoke Exposure: Yes - Caffeine Use Caffeine Use: Reports: Coffee - Recreational Drug Use Recreational Drug Use: No H&P Review of Systems - Review of Systems: Review Of Systems: Comprehensive ROS is negative, except as noted in HPI. Exam - Exam Exam: See Below - Vital Signs Vital Signs: Last Vital Signs Temp 35.7 C L 04/05/20 17:22 Pulse 65 04/05/20 17:22 Resp 22 H 04/05/20 17:22 BP 120/84 04/05/20 17:22 Pulse Ox 92 L 04/05/20 17:22 Weight: 132.766 kg - Exam General: Alert, Oriented HEENT: Mucosa Moist & [place] Lungs: Normal Respiratory Effort, Decreased Breath Sounds Cardiovascular: Regular Rate, Regular Rhythm GI/Abdominal Exam: Normal Bowel Sounds, Soft, Non-Tender, No Distention Extremities: Non-Tender, No Pedal Edema Skin: Warm, Dry, Intact - Patient Data Lab Results Last 24 hrs: Laboratory Results - last 24 hr 04/05/20 04/05/20 04/05/20 Range/Units 09:08 09:08 09:08 WBC 4.97 (4.0-11.0) K/uL RBC 4.61 (4.50-5.90) M/uL Hgb 13.5 (13.0-17.0) g/dL Hct 40.8 (38.0-50.0) % MCV 88.5 (80.0-98.0) fL MCH 29.3 (27.0-32.0) pg MCHC 33.1 (31.0-37.0) g/dL RDW Std Deviation 44.4 (28.0-62.0) fl RDW Coeff of Srinivasa 14 (11.0-15.0) % Plt Count 191 (150-400) K/uL MPV 10.10 (7.40-12.00) fL Neut % (Auto) 83.9 H (48.0-80.0) % Lymph % (Auto) 10.5 L (16.0-40.0) % [place] % (Auto) 5.4 (0.0-15.0) % Eos % (Auto) 0.2 (0.0-7.0) % Baso % (Auto) 0.0 (0.0-1.5) % Neut # (Auto) 4.2 (1.4-5.7) K/uL Lymph # (Auto) 0.5 L (0.6-2.4) K/uL [place] # (Auto) 0.3 (0.0-0.8) K/uL Eos # (Auto) 0.0 (0.0-0.7) K/uL Baso # (Auto) 0.0 (0.0-0.1) K/uL Nucleated RBC % 0.0 /100WBC Nucleated RBCs # 0 K/uL INR 1.03 Lactate 1.4 (0.20-2.00) mmol/L Sodium (136-148) mmol/L Potassium (3.5-5.1) mmol/L Chloride (98-107) mmol/L Carbon Dioxide (21.0-32.0) mmol/L BUN (7.0-18.0) mg/dL Creatinine (0.8-1.3) mg/dL Est Cr Clr Drug Dosing mL/min Estimated GFR (MDRD) ml/min Glucose (74-106) mg/dL Calcium (8.5-10.1) mg/dL Total Bilirubin (0.2-1.0) mg/dL AST (15-37) IU/L ALT (14-63) IU/L Alkaline Phosphatase (46-116) U/L Troponin I (0.000-0.056) ng/mL B-Natriuretic Peptide (<100) PG/ML Total Protein (6.4-8.2) g/dL Albumin (3.4-5.0) g/dL Globulin (2.6-4.0) g/dL Albumin/Globulin Ratio (0.9-1.6) TSH 3rd Generation (0.36-3.74) uIU/mL 04/05/20 04/05/20 Range/Units 09:08 09:08 WBC (4.0-11.0) K/uL RBC (4.50-5.90) M/uL Hgb (13.0-17.0) g/dL Hct (38.0-50.0) % MCV (80.0-98.0) fL MCH (27.0-32.0) pg MCHC (31.0-37.0) g/dL RDW Std Deviation (28.0-62.0) fl RDW Coeff of Srinivasa (11.0-15.0) % Plt Count (150-400) K/uL MPV (7.40-12.00) fL Neut % (Auto) (48.0-80.0) % Lymph % (Auto) (16.0-40.0) % [place] % (Auto) (0.0-15.0) % Eos % (Auto) (0.0-7.0) % Baso % (Auto) (0.0-1.5) % Neut # (Auto) (1.4-5.7) K/uL Lymph # (Auto) (0.6-2.4) K/uL [place] # (Auto) (0.0-0.8) K/uL Eos # (Auto) (0.0-0.7) K/uL Baso # (Auto) (0.0-0.1) K/uL Nucleated RBC % /100WBC Nucleated RBCs # K/uL INR Lactate (0.20-2.00) mmol/L Sodium 136 (136-148) mmol/L Potassium 3.7 (3.5-5.1) mmol/L Chloride 102 (98-107) mmol/L Carbon Dioxide 21.0 (21.0-32.0) mmol/L BUN 25 H (7.0-18.0) mg/dL Creatinine 1.3 (0.8-1.3) mg/dL Est Cr Clr Drug Dosing 88.22 mL/min Estimated GFR (MDRD) 57.1 ml/min Glucose 112 H (74-106) mg/dL Calcium 8.7 (8.5-10.1) mg/dL Total Bilirubin 0.7 (0.2-1.0) mg/dL AST 41 H (15-37) IU/L ALT 47 (14-63) IU/L Alkaline Phosphatase 76 (46-116) U/L Troponin I < 0.050 (0.000-0.056) ng/mL B-Natriuretic Peptide 21 (<100) PG/ML Total Protein 7.4 (6.4-8.2) g/dL Albumin 3.2 L (3.4-5.0) g/dL Globulin 4.2 H (2.6-4.0) g/dL Albumin/Globulin Ratio 0.8 L (0.9-1.6) TSH 3rd Generation 3.11 (0.36-3.74) uIU/mL Result Diagrams: 04/05/20 09:08 04/05/20 09:08 Dougie Results Last 24 hrs: Microbiology 04/05/20 10:06 Anaerobic Blood Culture - Final Blood - Venous - Lab Draw Sepsis Event Note - Evaluation Sepsis Screening Result: Possible Sepsis Risk - Focused Exam Vital Signs: Vital Signs Temp Pulse Resp BP BP Pulse Ox 04/05/20 17:22 35.7 C L 65 22 H 120/84 92 L 04/05/20 15:00 88 18 110/68 98 04/05/20 14:00 68 17 114/80 97 04/05/20 13:00 70 18 118/86 95 04/05/20 09:45 71 20 124/84 94 L 04/05/20 08:55 35.7 C L 74 24 H 95 Problem List Initiated/Reviewed/Updated: Yes Orders Last 24hrs: Active Orders 24 hr Category Date Time Status Admission Status [Patient Status] [ADT] Stat ADT 04/05/20 11:06 Active Antiembolic Devices [RC] PER UNIT ROUTINE Care 04/05/20 17:58 Ordered Cardiac Monitoring [RC] . DIRECTED Care 04/05/20 09:05 Active EKG Documentation Completion [RC] STAT Care 04/05/20 09:05 Active Oxygen Therapy [RC] PRN Care 04/05/20 17:50 Ordered Pulse Oximetry [RC] ASDIRECTED Care 04/05/20 09:05 Active Up ad Ashley [RC] ASDIRECTED Care 04/05/20 17:50 Ordered VTE/DVT Education [RC] PER UNIT ROUTINE Care 04/05/20 17:50 Ordered Vital Signs [RC] Q4H Care 04/05/20 17:50 Ordered Regular Diet [DIET] Diet 04/05/20 Breakfast Ordered ABO/RH TYPE [BBK] Routine Lab 04/05/20 17:39 Ordered CBC WITH AUTO DIFF [HEME] AM Lab 04/06/20 05:11 Ordered CBC WITH AUTO DIFF [HEME] AM Lab 04/07/20 05:11 Ordered COMPREHENSIVE METABOLIC PN,CMP [CHEM] AM Lab 04/06/20 05:11 Ordered COMPREHENSIVE METABOLIC PN,CMP [CHEM] AM Lab 04/07/20 05:11 Ordered CULTURE BLOOD [BC] Stat Lab 04/05/20 09:08 Received CULTURE BLOOD [BC] Stat Lab 04/05/20 10:06 Results FRESH FROZEN PLASMA [BBK] Routine Lab 04/05/20 17:39 Ordered Enoxaparin [Lovenox] Med 04/05/20 18:00 Ordered 40 mg SUBCUT Q24H Famotidine [Pepcid] Med 04/06/20 09:00 Ordered 20 mg PO DAILY Levothyroxine Med 04/06/20 09:00 Ordered 50 mcg PO DAILY Ondansetron [Zofran] Med 04/05/20 17:55 Ordered 4 mg IVPUSH Q4H PRN Remdesivir (Eua) [Remdesivir (EUA)] 100 mg Med 04/06/20 11:00 Ordered Sodium Chloride 0.9% [Normal Saline] 100 ml IV Q24H Sodium Chloride 0.9% [Saline Flush] Med 04/05/20 09:04 Active 10 ml FLUSH ASDIRECTED PRN Sodium Chloride 0.9% [Saline Flush] Med 04/05/20 09:04 Active 2.5 ml FLUSH ASDIRECTED PRN dexAMETHasone Med 04/06/20 09:00 Ordered 6 mg PO DAILY Blood Culture x2 Reflex Set [OM.PC] Stat Oth 04/05/20 09:04 Ordered Saline Lock Insert [OM.PC] Stat Oth 04/05/20 09:04 Ordered Sequential Compression Device [OM.PC] Per Unit Routine Oth 04/05/20 17:50 Ordered Transfuse Fresh Frozen Plasma [COMM] Routine Oth 04/05/20 17:39 Ordered Resuscitation Status Routine Resus Stat 04/05/20 17:50 Ordered Medication Orders Dexamethasone (Dexamethasone) 6 mg PO DAILY [place] Enoxaparin Sodium (Lovenox) 40 mg SUBCUT Q24H [place] Famotidine (Pepcid) 20 mg PO DAILY [place] Remdesivir 100 mg/ Sodium (Chloride) 100 mls @ 100 mls/hr IV Q24H [place] Stop: 04/09/20 11:59 Levothyroxine Sodium (Synthroid) 50 mcg PO ACBRK [place] Ondansetron HCl (Zofran) 4 mg IVPUSH Q4H PRN PRN Reason: Nausea Sodium Chloride (Saline Flush) 10 ml FLUSH ASDIRECTED PRN PRN Reason: Keep Vein Open Sodium Chloride (Saline Flush) 2.5 ml FLUSH ASDIRECTED PRN PRN Reason: Keep Vein Open Assessment/Plan Comment:: 55 yo male admitted with COVID pneumonia. Patient was explained the FDA EUA authorization of the remdesivir and convalescent plasma and consented to there use. COVID: requiring 6 liters NC, treating with dexamethasone, remdesivir, convalescent plasma, Lovenox, and Levaquin.
[2020-04-05] MEDS: Enoxaparin 40 MG/0.4 ML Syringe SUBCUT SCH (18:53)
[2020-04-05] MEDS: Levofloxacin/Dextrose 5%-Water 750 MG in Premix Bag 1 BAG IV SCH (21:02)
[2020-04-05] MEDS: LORazepam 2 MG/ML SDV IVPUSH PRN (22:34)
[2020-04-06 06:56] LABS: BLOOD UREA NITROGEN,BUN 30 mg/dL (7.0-18.0); CHLORIDE,CL 104 mmol/L (98-107); GLUCOSE RANDOM 118 mg/dL (74-106); POTASSIUM,K 4.1 mmol/L (3.5-5.1); SODIUM,NA 140 mmol/L (136-148)
[2020-04-06] MEDS: LORazepam 2 MG/ML SDV IVPUSH PRN ×2 (07:40→20:38)
[2020-04-06] MEDS: Levothyroxine 50 MCG Tab PO SCH (07:44)
[2020-04-06] MEDS: Dexamethasone 4 MG Tab PO SCH (09:21)
[2020-04-06] MEDS: Famotidine 20 MG Tab PO SCH (09:21)
[2020-04-06] MEDS ORDERED: FLU Vacc QS2020-21 36MOS UP/PF 60 MCG/0.5 ML Syringe IM ONE (10:00)
[2020-04-06] MEDS: REMDESIVIR 100 MG in Sodium Chloride 0.9% 100 ML IV SCH (11:04)
--- NOTE | 2020-04-06 12:51 | PCM.PN ---
- General Info Date of Service: 04/06/20 - Review of Systems Systems Review Comment:: breathing has improved - Patient Data Vitals - Most Recent: Last Vital Signs Temp 35.6 C L 04/06/20 12:38 Pulse 60 04/06/20 12:38 Resp 18 04/06/20 12:38 BP 109/74 04/06/20 12:38 Pulse Ox 96 04/06/20 12:38 Weight - Most Recent: 132.766 kg I&O - Last 24 Hours: Intake & Output 04/05/20 04/06/20 04/06/20 22:59 06:59 14:59 Intake Total 212 80 120 Output Total 500 Balance 212 -420 120 Lab Results Last 24 Hours: Laboratory Results - last 24 hr 04/05/20 04/06/20 04/06/20 Range/Units 18:53 05:33 05:33 WBC 3.30 L (4.0-11.0) K/uL RBC 4.32 L (4.50-5.90) M/uL Hgb 12.4 L (13.0-17.0) g/dL Hct 38.6 (38.0-50.0) % MCV 89.4 (80.0-98.0) fL MCH 28.7 (27.0-32.0) pg MCHC 32.1 (31.0-37.0) g/dL RDW Std Deviation 44.8 (28.0-62.0) fl RDW Coeff of Srinivasa 14 (11.0-15.0) % Plt Count 211 (150-400) K/uL MPV 10.60 (7.40-12.00) fL Neut % (Auto) 73.6 (48.0-80.0) % Lymph % (Auto) 17.0 (16.0-40.0) % Lares % (Auto) 8.8 (0.0-15.0) % Eos % (Auto) 0.3 (0.0-7.0) % Baso % (Auto) 0.3 (0.0-1.5) % Neut # (Auto) 2.4 (1.4-5.7) K/uL Lymph # (Auto) 0.6 (0.6-2.4) K/uL Lares # (Auto) 0.3 (0.0-0.8) K/uL Eos # (Auto) 0.0 (0.0-0.7) K/uL Baso # (Auto) 0.0 (0.0-0.1) K/uL Nucleated RBC % 0.0 /100WBC Nucleated RBCs # 0 K/uL Sodium 140 (136-148) mmol/L Potassium 4.1 (3.5-5.1) mmol/L Chloride 104 (98-107) mmol/L Carbon Dioxide 25.0 (21.0-32.0) mmol/L BUN 30 H (7.0-18.0) mg/dL Creatinine 1.2 (0.8-1.3) mg/dL Est Cr Clr Drug Dosing 95.57 mL/min Estimated GFR (MDRD) > 60.0 ml/min Glucose 118 H (74-106) mg/dL Calcium 9.0 (8.5-10.1) mg/dL Total Bilirubin 0.5 (0.2-1.0) mg/dL AST 34 (15-37) IU/L ALT 46 (14-63) IU/L Alkaline Phosphatase 69 (46-116) U/L Total Protein 7.2 (6.4-8.2) g/dL Albumin 3.0 L (3.4-5.0) g/dL Globulin 4.2 H (2.6-4.0) g/dL Albumin/Globulin Ratio 0.7 L (0.9-1.6) Blood Type A POSITIVE Dougie Results Last 24 Hours: Microbiology 04/05/20 10:06 Aerobic Blood Culture - Preliminary Blood - Venous - Lab Draw NO GROWTH AFTER 1 DAY Anaerobic Blood Culture - Final 04/05/20 09:08 Aerobic Blood Culture - Preliminary Blood - Venous NO GROWTH AFTER 1 DAY Anaerobic Blood Culture - Preliminary NO GROWTH AFTER 1 DAY Med Orders - Current: Current Medications Dexamethasone (Dexamethasone) 6 mg PO DAILY [facility] Last Admin: 04/06/20 09:21 Dose: 6 mg Documented by: Enoxaparin Sodium (Lovenox) 40 mg SUBCUT Q24H [facility] Last Admin: 04/05/20 18:53 Dose: 40 mg Documented by: Famotidine (Pepcid) 20 mg PO DAILY [facility] Last Admin: 04/06/20 09:21 Dose: 20 mg Documented by: Remdesivir 100 mg/ Sodium (Chloride) 100 mls @ 100 mls/hr IV Q24H [facility] Stop: 04/09/20 11:59 Last Admin: 04/06/20 11:04 Dose: 100 mls/hr Documented by: Levofloxacin/Dextrose 750 mg/ (Premix) 150 mls @ 100 mls/hr IV Q24H [facility] Last Admin: 04/05/20 21:02 Dose: 100 mls/hr Documented by: Levothyroxine Sodium (Synthroid) 50 mcg PO ACBRK [facility] Last Admin: 04/06/20 07:44 Dose: Not Given Documented by: Lorazepam (Ativan) 1 mg IVPUSH Q8H PRN PRN Reason: Anxiety Last Admin: 04/06/20 07:40 Dose: 1 mg Documented by: Ondansetron HCl (Zofran) 4 mg IVPUSH Q4H PRN PRN Reason: Nausea Last Admin: 04/05/20 22:34 Dose: 4 mg Documented by: Sodium Chloride (Saline Flush) 10 ml FLUSH ASDIRECTED PRN PRN Reason: Keep Vein Open Sodium Chloride (Saline Flush) 2.5 ml FLUSH ASDIRECTED PRN PRN Reason: Keep Vein Open Discontinued Medications Dexamethasone (Decadron) 6 mg IVPUSH ONETIME ONE Stop: 04/05/20 10:56 Last Admin: 04/05/20 11:47 Dose: 6 mg Documented by: Remdesivir 200 mg/ Sodium (Chloride) 250 mls @ 250 mls/hr IV ONETIME ONE Stop: 04/05/20 10:57 Last Admin: 04/05/20 11:49 Dose: 250 mls/hr Documented by: Influenza Virus Vaccine (Afluria Quad 2019- (3yr Up)) 60 mcg IM .ONCE ONE Stop: 04/06/20 10:01 Last Admin: 04/06/20 10:33 Dose: Not Given Documented by: - Exam General: Alert, Oriented Neck: Supple Lungs: Clear to Auscultation, Normal Respiratory Effort Cardiovascular: Regular Rate, Regular Rhythm GI/Abdominal Exam: Soft, Non-Tender, No Distention Extremities: Non-Tender, No Pedal Edema Skin: Warm, Dry, Intact Neurological: No New Focal Deficit Sepsis Event Note - Evaluation Sepsis Screening Result: No Definite Risk - Focused Exam Vital Signs: Vital Signs Temp Pulse Resp BP Pulse Ox 04/06/20 12:38 35.6 C L 60 18 109/74 96 04/06/20 09:27 35.7 C L 62 19 114/76 90 L 04/06/20 04:35 35.6 C L 55 L 20 116/71 94 L - Problem List Review Problem List Initiated/Reviewed/Updated: Yes - My Orders Last 24 Hours: My Active Orders 04/05/20 17:50 Oxygen Therapy [RC] PRN Up ad Ashley [RC] ASDIRECTED VTE/DVT Education [RC] PER UNIT ROUTINE Vital Signs [RC] Q4H Sequential Compression Device [OM.PC] Per Unit Routine Resuscitation Status Routine 04/05/20 17:55 Ondansetron [Zofran] 4 mg IVPUSH Q4H PRN 04/05/20 17:58 Antiembolic Devices [RC] PER UNIT ROUTINE 04/05/20 18:00 Enoxaparin [Lovenox] 40 mg SUBCUT Q24H 04/05/20 18:43 Influenza Vaccine Charge [RC] .DISCHARGE 04/05/20 18:53 ABO/RH TYPE [BBK] Routine FRESH FROZEN PLASMA [BBK] Routine 04/05/20 19:30 Levofloxacin/Dextrose 5%-Water [Levaquin in D5W 750 MG/150 ML] 750 mg Premix Bag 1 bag IV Q24H 04/05/20 21:28 LORazepam [Ativan] 1 mg IVPUSH Q8H PRN 04/06/20 07:30 Levothyroxine [Synthroid] 50 mcg PO ACBRK 04/06/20 09:00 Famotidine [Pepcid] 20 mg PO DAILY dexAMETHasone 6 mg PO DAILY 04/06/20 11:00 Remdesivir (Eua) [Remdesivir (EUA)] 100 mg Sodium Chloride 0.9% [Normal Saline] 100 ml IV Q24H 04/06/20 12:47 Transfuse Fresh Frozen Plasma [COMM] Routine 04/07/20 05:11 CBC WITH AUTO DIFF [HEME] AM COMPREHENSIVE METABOLIC PN,CMP [CHEM] AM - Plan Plan:: 55 yo male admitted with COVID pneumonia. Patient was explained the FDA EUA authorization of the remdesivir and convalescent plasma and consented to there use. COVID: requiring 4 liters NC, continue with dexamethasone, remdesivir, 2nd unit of convalescent plasma, Lovenox, and Levaquin. Discussed getting a CT angio of chest but patient would prefer not to get one today. PE appears to be unlikely.
[2020-04-06] MEDS: Enoxaparin 40 MG/0.4 ML Syringe SUBCUT SCH (18:05)
[2020-04-06] MEDS: Levofloxacin/Dextrose 5%-Water 750 MG in Premix Bag 1 BAG IV SCH (19:03)
[2020-04-07 06:23] LABS: BLOOD UREA NITROGEN,BUN 33 mg/dL (7.0-18.0); CARBON DIOXIDE,CO2 23.4 mmol/L (21.0-32.0); CHLORIDE,CL 105 mmol/L (98-107); GLUCOSE RANDOM 109 mg/dL (74-106); POTASSIUM,K 3.8 mmol/L (3.5-5.1); SODIUM,NA 141 mmol/L (136-148)
[2020-04-07] MEDS: Dexamethasone 4 MG Tab PO SCH (08:43)
[2020-04-07] MEDS: Levothyroxine 50 MCG Tab PO SCH (08:44)
[2020-04-07] MEDS: Famotidine 20 MG Tab PO SCH (08:45)
[2020-04-07] MEDS: REMDESIVIR 100 MG in Sodium Chloride 0.9% 100 ML IV SCH (11:13)
--- NOTE | 2020-04-07 14:40 | PCM.PN ---
<Jose Jimenes - Last Filed: 04/07/20 14:41> - General Info Date of Service: 04/07/20 Subjective Update: Patient states that he feels better. States that he doesn't feel as short of breath. Still states dry cough throughout the day with fatigue. - Review of Systems General: Reports: Weakness, Fatigue. Denies: Chills HEENT: Denies: Headaches, Visual Changes Pulmonary: Reports: Shortness of Breath, Cough Cardiovascular: Reports: Dyspnea on Exertion. Denies: Chest Pain, Lightheadedness Gastrointestinal: Denies: Abdominal Pain, Diarrhea, Nausea, Vomiting Neurological: Denies: Dizziness, Headache - Patient Data Vitals - Most Recent: Last Vital Signs Temp 96.4 F L 04/07/20 12:00 Pulse 59 L 04/07/20 12:00 Resp 16 04/07/20 12:00 BP 128/73 04/07/20 12:00 Pulse Ox 93 L 04/07/20 12:00 Weight - Most Recent: 132.766 kg I&O - Last 24 Hours: Intake & Output 04/06/20 04/07/20 04/07/20 22:59 06:59 14:59 Intake Total 1371 460 Output Total 1300 Balance 71 460 Lab Results Last 24 Hours: Laboratory Results - last 24 hr 04/05/20 04/07/20 04/07/20 Range/Units 18:53 05:32 05:32 WBC 5.15 (4.0-11.0) K/uL RBC 4.22 L (4.50-5.90) M/uL Hgb 12.2 L (13.0-17.0) g/dL Hct 37.3 L (38.0-50.0) % MCV 88.4 (80.0-98.0) fL MCH 28.9 (27.0-32.0) pg MCHC 32.7 (31.0-37.0) g/dL RDW Std Deviation 42.8 (28.0-62.0) fl RDW Coeff of Srinivasa 13 (11.0-15.0) % Plt Count 232 (150-400) K/uL MPV 10.30 (7.40-12.00) fL Neut % (Auto) 80.7 H (48.0-80.0) % Lymph % (Auto) 11.5 L (16.0-40.0) % Faulkner % (Auto) 6.8 (0.0-15.0) % Eos % (Auto) 1.0 (0.0-7.0) % Baso % (Auto) 0.0 (0.0-1.5) % Neut # (Auto) 4.2 (1.4-5.7) K/uL Lymph # (Auto) 0.6 (0.6-2.4) K/uL Faulkner # (Auto) 0.4 (0.0-0.8) K/uL Eos # (Auto) 0.1 (0.0-0.7) K/uL Baso # (Auto) 0.0 (0.0-0.1) K/uL Nucleated RBC % 0.0 /100WBC Nucleated RBCs # 0 K/uL Sodium 141 (136-148) mmol/L Potassium 3.8 (3.5-5.1) mmol/L Chloride 105 (98-107) mmol/L Carbon Dioxide 23.4 (21.0-32.0) mmol/L BUN 33 H (7.0-18.0) mg/dL Creatinine 1.2 (0.8-1.3) mg/dL Est Cr Clr Drug Dosing 95.57 mL/min Estimated GFR (MDRD) > 60.0 ml/min Glucose 109 H (74-106) mg/dL Calcium 8.9 (8.5-10.1) mg/dL Total Bilirubin 0.5 (0.2-1.0) mg/dL AST 27 (15-37) IU/L ALT 43 (14-63) IU/L Alkaline Phosphatase 65 (46-116) U/L Total Protein 6.9 (6.4-8.2) g/dL Albumin 2.9 L (3.4-5.0) g/dL Globulin 4.0 (2.6-4.0) g/dL Albumin/Globulin Ratio 0.7 L (0.9-1.6) Blood Type A POSITIVE Dougie Results Last 24 Hours: Microbiology 04/05/20 10:06 Aerobic Blood Culture - Preliminary Blood - Venous - Lab Draw NO GROWTH AFTER 2 DAYS Anaerobic Blood Culture - Final 04/05/20 09:08 Aerobic Blood Culture - Preliminary Blood - Venous NO GROWTH AFTER 2 DAYS Anaerobic Blood Culture - Preliminary NO GROWTH AFTER 2 DAYS Med Orders - Current: Current Medications Dexamethasone (Dexamethasone) 6 mg PO DAILY [facility] Last Admin: 04/07/20 08:43 Dose: 6 mg Documented by: Enoxaparin Sodium (Lovenox) 40 mg SUBCUT Q24H [facility] Last Admin: 04/06/20 18:05 Dose: 40 mg Documented by: Famotidine (Pepcid) 20 mg PO DAILY [facility] Last Admin: 04/07/20 08:45 Dose: 20 mg Documented by: Remdesivir 100 mg/ Sodium (Chloride) 100 mls @ 100 mls/hr IV Q24H [facility] Stop: 04/09/20 11:59 Last Admin: 04/07/20 11:13 Dose: 100 mls/hr Documented by: Levofloxacin/Dextrose 750 mg/ (Premix) 150 mls @ 100 mls/hr IV Q24H [facility] Last Admin: 04/06/20 19:03 Dose: 100 mls/hr Documented by: Levothyroxine Sodium (Synthroid) 50 mcg PO ACBRK [facility] Last Admin: 04/07/20 08:44 Dose: 50 mcg Documented by: Lorazepam (Ativan) 1 mg IVPUSH Q8H PRN PRN Reason: Anxiety Last Admin: 04/06/20 20:38 Dose: 1 mg Documented by: Ondansetron HCl (Zofran) 4 mg IVPUSH Q4H PRN PRN Reason: Nausea Last Admin: 04/05/20 22:34 Dose: 4 mg Documented by: Sodium Chloride (Saline Flush) 10 ml FLUSH ASDIRECTED PRN PRN Reason: Keep Vein Open Last Admin: 04/06/20 20:39 Dose: 10 ml Documented by: Sodium Chloride (Saline Flush) 2.5 ml FLUSH ASDIRECTED PRN PRN Reason: Keep Vein Open Last Admin: 04/06/20 20:40 Dose: 2.5 ml Documented by: Discontinued Medications Dexamethasone (Decadron) 6 mg IVPUSH ONETIME ONE Stop: 04/05/20 10:56 Last Admin: 04/05/20 11:47 Dose: 6 mg Documented by: Remdesivir 200 mg/ Sodium (Chloride) 250 mls @ 250 mls/hr IV ONETIME ONE Stop: 04/05/20 10:57 Last Admin: 04/05/20 11:49 Dose: 250 mls/hr Documented by: Influenza Virus Vaccine (Afluria Quad (3yr Up)) 60 mcg IM .ONCE ONE Stop: 04/06/20 10:01 Last Admin: 04/06/20 10:33 Dose: Not Given Documented by: - Exam General: Alert, Oriented Lungs: Clear to Auscultation, Normal Respiratory Effort. No: Crackles Cardiovascular: Regular Rate, Regular Rhythm GI/Abdominal Exam: Normal Bowel Sounds, Soft, Non-Tender Extremities: Normal Range of Motion Sepsis Event Note - Evaluation Sepsis Screening Result: No Definite Risk - Focused Exam Vital Signs: Vital Signs Temp Pulse Resp BP Pulse Ox 04/07/20 12:00 96.4 F L 59 L 16 128/73 93 L 04/07/20 08:47 96.1 F L 56 L 18 115/75 95 04/07/20 05:02 96.8 F L 48 L 18 95 - Problem List Review Problem List Initiated/Reviewed/Updated: Yes - Plan Plan:: COVID Infection: Patient is currently requiring 2L O2 support. Will wean as tolerated. Will continue with dexamethasone 6mg PO QD, Remdesivir 100MG QD, Lovenox 40mg QD, and Levaquin 750mg QD, Incentive Spirometry Hypothyroidism: Synthroid 50mcg QD <Sravanthi Heller - Last Filed: 04/10/20 13:09> - General Info Subjective Update: I have seen and evaluated the patient and agree with the residents note unless specified in my note - Patient Data Vitals - Most Recent: Last Vital Signs Temp 36.4 C 04/08/20 13:58 Pulse 57 L 04/08/20 13:58 Resp 20 04/08/20 13:58 BP 119/83 04/08/20 13:58 Pulse Ox 94 L 04/08/20 13:58 Dougie Results Last 24 Hours: Microbiology 04/05/20 10:06 Aerobic Blood Culture - Final Blood - Venous - Lab Draw NO GROWTH AFTER 5 DAYS Anaerobic Blood Culture - Final 04/05/20 09:08 Aerobic Blood Culture - Final Blood - Venous NO GROWTH AFTER 5 DAYS Anaerobic Blood Culture - Final NO GROWTH AFTER 5 DAYS Med Orders - Current: Current Medications Discontinued Medications Dexamethasone (Decadron) 6 mg IVPUSH ONETIME ONE Stop: 04/05/20 10:56 Last Admin: 04/05/20 11:47 Dose: 6 mg Documented by: Dexamethasone (Dexamethasone) 6 mg PO DAILY [facility] Last Admin: 04/08/20 08:32 Dose: 6 mg Documented by: Enoxaparin Sodium (Lovenox) 40 mg SUBCUT Q24H [facility] Last Admin: 04/07/20 18:40 Dose: 40 mg Documented by: Famotidine (Pepcid) 20 mg PO DAILY [facility] Last Admin: 04/08/20 08:33 Dose: 20 mg Documented by: Remdesivir 200 mg/ Sodium (Chloride) 250 mls @ 250 mls/hr IV ONETIME ONE Stop: 04/05/20 10:57 Last Admin: 04/05/20 11:49 Dose: 250 mls/hr Documented by: Remdesivir 100 mg/ Sodium (Chloride) 100 mls @ 100 mls/hr IV Q24H [facility] Stop: 04/09/20 11:59 Last Admin: 04/08/20 10:44 Dose: 100 mls/hr Documented by: Levofloxacin/Dextrose 750 mg/ (Premix) 150 mls @ 100 mls/hr IV Q24H [facility] Last Admin: 04/07/20 18:42 Dose: 100 mls/hr Documented by: Influenza Virus Vaccine (Afluria Quad 2020-21 (3yr Up)) 60 mcg IM .ONCE ONE Stop: 04/06/20 10:01 Last Admin: 04/06/20 10:33 Dose: Not Given Documented by: Levothyroxine Sodium (Synthroid) 50 mcg PO ACBRK [facility] Last Admin: 04/08/20 08:33 Dose: 50 mcg Documented by: Lorazepam (Ativan) 1 mg IVPUSH Q8H PRN PRN Reason: Anxiety Last Admin: 04/07/20 22:26 Dose: 1 mg Documented by: Ondansetron HCl (Zofran) 4 mg IVPUSH Q4H PRN PRN Reason: Nausea Last Admin: 04/05/20 22:34 Dose: 4 mg Documented by: Sodium Chloride (Saline Flush) 10 ml FLUSH ASDIRECTED PRN PRN Reason: Keep Vein Open Last Admin: 04/06/20 20:39 Dose: 10 ml Documented by: Sodium Chloride (Saline Flush) 2.5 ml FLUSH ASDIRECTED PRN PRN Reason: Keep Vein Open Last Admin: 04/06/20 20:40 Dose: 2.5 ml Documented by:
[2020-04-07] MEDS: Enoxaparin 40 MG/0.4 ML Syringe SUBCUT SCH (18:40)
[2020-04-07] MEDS: Levofloxacin/Dextrose 5%-Water 750 MG in Premix Bag 1 BAG IV SCH (18:42)
--- NOTE | 2020-04-07 20:41 | PCM.SN.2 ---
- Free Text/Narrative Note: IV start requested. Pt consents. Aseptic technique 2% lidocaine skin wheel L) hand. 20ga abbocath placed x 1 attempt. Dressing applied and secured with tape. Saline lock. RN notified
[2020-04-07] MEDS: LORazepam 2 MG/ML SDV IVPUSH PRN (22:26)
[2020-04-08 07:13] LABS: BLOOD UREA NITROGEN,BUN 31 mg/dL (7.0-18.0); CARBON DIOXIDE,CO2 23.4 mmol/L (21.0-32.0); CHLORIDE,CL 108 mmol/L (98-107); GLUCOSE RANDOM 95 mg/dL (74-106); POTASSIUM,K 3.8 mmol/L (3.5-5.1); SODIUM,NA 142 mmol/L (136-148)
[2020-04-08] MEDS: Dexamethasone 4 MG Tab PO SCH (08:32)
[2020-04-08] MEDS: Famotidine 20 MG Tab PO SCH (08:33)
[2020-04-08] MEDS: Levothyroxine 50 MCG Tab PO SCH (08:33)
[2020-04-08] MEDS: REMDESIVIR 100 MG in Sodium Chloride 0.9% 100 ML IV SCH (10:44)
--- NOTE | 2020-04-08 15:22 | PCM.SN.2 ---
- Free Text/Narrative Note: patient feels better but still requiring oxygen, patient insists on discharge today, states his PTSD is getting worse staying isolated in the room and he wont be able to make it another night here. Patient does have underlying pulmonary fibrosis so i believe it will take him longer to be weaned off the oxygen, patient is hemodynamically stable otherwise. He was recommended to stay one more night to complete his remdesivir course ( 1 dose left) but doesnt want to stay. He is aware of the risks of going home and understands he can get worse at home but wants to go regardless. He is awake, alert, oriented an competent to make this decision. Given that he only needs 2Lts of oxygen at rest, i feel comfortable discharging him home with home oxygen with strict instructions to come back if he feels his symptoms are getting worse or if his oxygen saturations start dropping. 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
--- NOTE | 2020-04-08 17:42 | PCM.DCSUM1 ---
<Jose Jimenes - Last Filed: 04/08/20 18:29> Discharge Summary - Hospital Course Free Text/Narrative:: 55-year-old male admitted for COVID infection with pneumonia. Patient states that he was diagnosed with COVID 2 weeks prior but that his symptoms worsened over the 2 weeks, most notably increased SOB. Patient also had body aches with diarrhea on admission. PMH includes prior metastatic prostate cancer, hypertension, pulmonary fibrosis from bleomycin therapy, depression and hypothyroidism. Patients was admitted to the ICU and treated with remdesivir, dexamethasone, convalescent plasma, supplemental oxygen therapy, antibiotics. Patient was discharged today but was urged to stay for one more day to complete his remdesivir course as his oxygen saturations on exertion would drop to the mid 80s. Patient was requiring 2-3L O2 during admission. His is aware of the risks of going home. Patient was discharged with order for home oxygen and understands that he needs to report back to the [facility] if his breathing status detorratates. Patients was spoken to and she is aware of our concerns. - Discharge Data Discharge Date: 04/08/20 Discharge Disposition: Home, Self-Care 01 Condition: Stable - Referral to Home Health Primary Care Physician: PCP None - Discharge Plan Prescriptions/Med Rec: dexAMETHasone [Dexamethasone] 6 mg PO DAILY 7 Days #7 tablet levoFLOXacin [Levofloxacin] 750 mg PO DAILY 2 Days #2 tablet Home Medications: Home Meds Levothyroxine 50 mcg PO DAILY 02/05/19 [History] Aspirin [Ecotrin EC] 81 mg PO DAILY 08/22/19 [History] Cholecalciferol (Vitamin D3) [Vitamin D] 5,000 units PO DAILY 08/22/19 [History] Famotidine [Pepcid] 20 mg PO DAILY 04/05/20 [History] dexAMETHasone [Dexamethasone] 6 mg PO DAILY 7 Days #7 tablet 04/08/20 [Rx] levoFLOXacin [Levofloxacin] 750 mg PO DAILY 2 Days #2 tablet 04/08/20 [Rx] Oxygen Therapy Mode: Nasal Cannula Patient Handouts: Hypoxia, COVID-19 Frequently Asked Questions, COVID-19: How to Protect Yourself and Others - CDC, Levofloxacin tablets, Dexamethasone tablets, Prevent the Spread of COVID-19 if You Are Sick - CDC Forms: ED Department Discharge Referrals: Jonatan Gabriel DIVISION CHIEF [Ordering Only Provider] - 04/16/20 9:30 am - Discharge Summary/Plan Comment DC Time >30 min.: Yes - General Info Date of Service: 04/08/20 Admission Dx/Problem (Free Text: Patient states he would like to go home. Denies fever, chills, nausea, vomiting, diarrhea chest pain. States SOB with exertion and general fatigue. Advised to stay for one more night but patient refused. - Review of Systems General: Reports: Weakness. Denies: Fever, Chills Pulmonary: Reports: Shortness of Breath. Denies: Pleuritic Chest Pain, Cough Cardiovascular: Reports: Dyspnea on Exertion. Denies: Chest Pain, Palpitations Gastrointestinal: Denies: Abdominal Pain, Diarrhea Neurological: Denies: Dizziness, Headache - Patient Data Vitals - Most Recent: Last Vital Signs Temp 97.6 F 04/08/20 13:58 Pulse 57 L 04/08/20 13:58 Resp 20 04/08/20 13:58 BP 119/83 04/08/20 13:58 Pulse Ox 94 L 04/08/20 13:58 Weight - Most Recent: 132.766 kg I&O - Last 24 hours: Intake & Output 04/08/20 04/08/20 04/08/20 06:59 14:59 22:59 Intake Total 350 Output Total 300 Balance 50 Lab Results - Last 24 hrs: Laboratory Results - last 24 hr 04/08/20 Range/Units 06:04 Sodium 142 (136-148) mmol/L Potassium 3.8 (3.5-5.1) mmol/L Chloride 108 H (98-107) mmol/L Carbon Dioxide 23.4 (21.0-32.0) mmol/L BUN 31 H (7.0-18.0) mg/dL Creatinine 1.1 (0.8-1.3) mg/dL Est Cr Clr Drug Dosing 104.26 mL/min Estimated GFR (MDRD) > 60.0 ml/min Glucose 95 (74-106) mg/dL Calcium 8.7 (8.5-10.1) mg/dL Total Bilirubin 0.5 (0.2-1.0) mg/dL AST 37 (15-37) IU/L ALT 60 (14-63) IU/L Alkaline Phosphatase 68 (46-116) U/L Total Protein 6.9 (6.4-8.2) g/dL Albumin 2.9 L (3.4-5.0) g/dL Globulin 4.0 (2.6-4.0) g/dL Albumin/Globulin Ratio 0.7 L (0.9-1.6) RANJITH Results - Last 24 hrs: Microbiology 04/05/20 10:06 Aerobic Blood Culture - Preliminary Blood - Venous - Lab Draw NO GROWTH AFTER 3 DAYS Anaerobic Blood Culture - Final 04/05/20 09:08 Aerobic Blood Culture - Preliminary Blood - Venous NO GROWTH AFTER 3 DAYS Anaerobic Blood Culture - Preliminary NO GROWTH AFTER 3 DAYS Med Orders - Current: Current Medications Discontinued Medications Dexamethasone (Decadron) 6 mg IVPUSH ONETIME ONE Stop: 04/05/20 10:56 Last Admin: 04/05/20 11:47 Dose: 6 mg Documented by: Dexamethasone (Dexamethasone) 6 mg PO DAILY [facility] Last Admin: 04/08/20 08:32 Dose: 6 mg Documented by: Enoxaparin Sodium (Lovenox) 40 mg SUBCUT Q24H [facility] Last Admin: 04/07/20 18:40 Dose: 40 mg Documented by: Famotidine (Pepcid) 20 mg PO DAILY [facility] Last Admin: 04/08/20 08:33 Dose: 20 mg Documented by: Remdesivir 200 mg/ Sodium (Chloride) 250 mls @ 250 mls/hr IV ONETIME ONE Stop: 04/05/20 10:57 Last Admin: 04/05/20 11:49 Dose: 250 mls/hr Documented by: Remdesivir 100 mg/ Sodium (Chloride) 100 mls @ 100 mls/hr IV Q24H [facility] Stop: 04/09/20 11:59 Last Admin: 04/08/20 10:44 Dose: 100 mls/hr Documented by: Levofloxacin/Dextrose 750 mg/ (Premix) 150 mls @ 100 mls/hr IV Q24H [facility] Last Admin: 04/07/20 18:42 Dose: 100 mls/hr Documented by: Influenza Virus Vaccine (Afluria Quad 2019- (3yr Up)) 60 mcg IM .ONCE ONE Stop: 04/06/20 10:01 Last Admin: 04/06/20 10:33 Dose: Not Given Documented by: Levothyroxine Sodium (Synthroid) 50 mcg PO ACBRK [facility] Last Admin: 04/08/20 08:33 Dose: 50 mcg Documented by: Lorazepam (Ativan) 1 mg IVPUSH Q8H PRN PRN Reason: Anxiety Last Admin: 04/07/20 22:26 Dose: 1 mg Documented by: Ondansetron HCl (Zofran) 4 mg IVPUSH Q4H PRN PRN Reason: Nausea Last Admin: 04/05/20 22:34 Dose: 4 mg Documented by: Sodium Chloride (Saline Flush) 10 ml FLUSH ASDIRECTED PRN PRN Reason: Keep Vein Open Last Admin: 04/06/20 20:39 Dose: 10 ml Documented by: Sodium Chloride (Saline Flush) 2.5 ml FLUSH ASDIRECTED PRN PRN Reason: Keep Vein Open Last Admin: 04/06/20 20:40 Dose: 2.5 ml Documented by: - Exam General: Reports: Alert, Oriented Lungs: Reports: Clear to Auscultation, Normal Respiratory Effort Cardiovascular: Reports: Regular Rate, Regular Rhythm GI/Abdominal Exam: Normal Bowel Sounds, Soft, Non-Tender Neurological: Reports: Normal Gait, Normal Speech Psy/Mental Status: Reports: Alert, Normal Affect <Arron,Hooria - Last Filed: 04/10/20 12:27> Discharge Summary - Hospital Course Free Text/Narrative:: I have seen and evaluated the patient and agree with the residents note unless specified in my note - Referral to Home Health Primary Care Physician: PCP None - Patient Data Vitals - Most Recent: Last Vital Signs Temp 36.4 C 04/08/20 13:58 Pulse 57 L 04/08/20 13:58 Resp 20 04/08/20 13:58 BP 119/83 04/08/20 13:58 Pulse Ox 94 L 04/08/20 13:58 RANJITH Results - Last 24 hrs: Microbiology 04/05/20 10:06 Aerobic Blood Culture - Final Blood - Venous - Lab Draw NO GROWTH AFTER 5 DAYS Anaerobic Blood Culture - Final 04/05/20 09:08 Aerobic Blood Culture - Final Blood - Venous NO GROWTH AFTER 5 DAYS Anaerobic Blood Culture - Final NO GROWTH AFTER 5 DAYS Med Orders - Current: Current Medications Discontinued Medications Dexamethasone (Decadron) 6 mg IVPUSH ONETIME ONE Stop: 04/05/20 10:56 Last Admin: 04/05/20 11:47 Dose: 6 mg Documented by: Dexamethasone (Dexamethasone) 6 mg PO DAILY [facility] Last Admin: 04/08/20 08:32 Dose: 6 mg Documented by: Enoxaparin Sodium (Lovenox) 40 mg SUBCUT Q24H [facility] Last Admin: 04/07/20 18:40 Dose: 40 mg Documented by: Famotidine (Pepcid) 20 mg PO DAILY [facility] Last Admin: 04/08/20 08:33 Dose: 20 mg Documented by: Remdesivir 200 mg/ Sodium (Chloride) 250 mls @ 250 mls/hr IV ONETIME ONE Stop: 04/05/20 10:57 Last Admin: 04/05/20 11:49 Dose: 250 mls/hr Documented by: Remdesivir 100 mg/ Sodium (Chloride) 100 mls @ 100 mls/hr IV Q24H [facility] Stop: 04/09/20 11:59 Last Admin: 04/08/20 10:44 Dose: 100 mls/hr Documented by: Levofloxacin/Dextrose 750 mg/ (Premix) 150 mls @ 100 mls/hr IV Q24H [facility] Last Admin: 04/07/20 18:42 Dose: 100 mls/hr Documented by: Influenza Virus Vaccine (Afluria Quad 2020- (3yr Up)) 60 mcg IM .ONCE ONE Stop: 04/06/20 10:01 Last Admin: 04/06/20 10:33 Dose: Not Given Documented by: Levothyroxine Sodium (Synthroid) 50 mcg PO ACBRK [facility] Last Admin: 04/08/20 08:33 Dose: 50 mcg Documented by: Lorazepam (Ativan) 1 mg IVPUSH Q8H PRN PRN Reason: Anxiety Last Admin: 04/07/20 22:26 Dose: 1 mg Documented by: Ondansetron HCl (Zofran) 4 mg IVPUSH Q4H PRN PRN Reason: Nausea Last Admin: 04/05/20 22:34 Dose: 4 mg Documented by: Sodium Chloride (Saline Flush) 10 ml FLUSH ASDIRECTED PRN PRN Reason: Keep Vein Open Last Admin: 04/06/20 20:39 Dose: 10 ml Documented by: Sodium Chloride (Saline Flush) 2.5 ml FLUSH ASDIRECTED PRN PRN Reason: Keep Vein Open Last Admin: 04/06/20 20:40 Dose: 2.5 ml Documented by:
== END 2020-04-08 16:45 | disposition home or self-care (01) | DRG 177 ==
LOC: MW.ED 08:51 → MW.ICU 11:06
PROVIDERS: ADMIT Internal Medicine; ATTEND Internal Medicine
PROC: XW033E5 Introduction of Remdesivir Anti-infective into Peripheral Vein, Percutaneous Approach, New Technology Group 5 (ICD-10-PCS; principal; 2020-04-05)
PROC: XW13325 Transfusion of Convalescent Plasma (Nonautologous) into Peripheral Vein, Percutaneous Approach, New Technology Group 5 (ICD-10-PCS; 2020-04-05)
DX: U07.1 COVID-19 (principal); R09.02 Hypoxemia; J12.9 Viral pneumonia, unspecified; K44.9 Diaphragmatic hernia without obstruction or gangrene; I10 Essential (primary) hypertension; F41.9 Anxiety disorder, unspecified; C61 Malignant neoplasm of prostate; C79.82 Secondary malignant neoplasm of genital organs; J84.10 Pulmonary fibrosis, unspecified; Z79.890 Hormone replacement therapy; Z79.899 Other long term (current) drug therapy; F32.9 Major depressive disorder, single episode, unspecified; E03.9 Hypothyroidism, unspecified; Z99.81 Dependence on supplemental oxygen; Z79.01 Long term (current) use of anticoagulants; Z85.47 Personal history of malignant neoplasm of testis; Z79.82 Long term (current) use of aspirin; Z86.79 Personal history of other diseases of the circulatory system; Z87.09 Personal history of other diseases of the respiratory system; Z85.46 Personal history of malignant neoplasm of prostate; Z87.19 Personal history of other diseases of the digestive system; Z87.448 Personal history of other diseases of urinary system; Z86.59 Personal history of other mental and behavioral disorders; Z86.19 Personal history of other infectious and parasitic diseases
CPT/HCPCS: 36410; 36415; 36430; 71045; 71045-26; 80053; 83605; 83880; 84443; 84484; 85025; 85610; 86900; 86901; 87040; 93005; 93010; 99221; 99231; 99239; 99283; 99285-25; A9270-GY; J1100; J1650; J1956; J2060; J2405; J7050; J8540; P9017

== ENCOUNTER 2020-11-10 22:14 | Emergency (ER) | payer OTHER ==
--- NOTE | 2020-11-10 22:38 | EDM.PDOC ---
ED HPI GENERAL MEDICAL PROBLEM - General Chief Complaint: Chest Pain Stated Complaint: HEART RATE DROPS WHEN LAYING DOWN Time Seen by Provider: 11/10/20 22:15 Source of Information: Reports: Patient History Limitations: Reports: No Limitations - History of Present Illness INITIAL COMMENTS - FREE TEXT/NARRATIVE: 55-year-old male past medical history hypothyroidism, hypertension, COVID-19 infection in March of last year, metastatic prostate cancer status post chemo and radiation therapy 4 years ago presents for bradycardia and weakness. History is from patient and his daughter. Patient notes that this has been going on ever since his Covid infection last year but seems to be becoming more frequent and worse. He notes that he gets short of breath with walking long di stances. He notes that sometimes he can feel his heart rate drop and that this seems worse when he is laying down. Tonight it happened multiple times and he did check his heart rate and it was 38 bpm. When changing position and went back up to the 70s. He denies any associated shortness of breath, nausea, vomiting. He does say that he has had on and off chest pain since March of last year and a pinpoint location of his left anterior chest without radiation. - Related Data Allergies Allergy/AdvReac Type Severity Reaction Status Date / Time No Known Allergies Allergy Verified 04/05/20 09:04 Home Meds: Home Meds Levothyroxine 50 mcg PO DAILY 02/05/19 [History] Aspirin [Ecotrin EC] 81 mg PO DAILY 08/22/19 [History] Cholecalciferol (Vitamin D3) [Vitamin D] 5,000 units PO DAILY 08/22/19 [History] Famotidine [Pepcid] 20 mg PO DAILY 04/05/20 [History] dexAMETHasone [Dexamethasone] 6 mg PO DAILY 7 Days #7 tablet 04/08/20 [Rx] levoFLOXacin [Levofloxacin] 750 mg PO DAILY 2 Days #2 tablet 04/08/20 [Rx] Past Medical History HEENT History: Reports: None Cardiovascular History: Reports: Other (See Below) Other Cardiovascular History: hx of having "heart episodes" Respiratory History: Reports: None, Pulmonary Fibrosis, Other (See Below) 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 Gastrointestinal History: Reports: Hiatal Hernia Genitourinary History: Reports: Prostate Disorder Other Genitourinary History: prostate and testicular CA Musculoskeletal History: Reports: None Neurological History: Reports: None Psychiatric History: Reports: Anxiety Endocrine/Metabolic History: Reports: Hypothyroidism Hematologic History: Reports: None Immunologic History: Reports: None Oncologic (Cancer) History: Reports: Other (See Below) Other Oncologic History: stage 3 testicular, stage 4 prostate cancer Dermatologic History: Reports: None - Infectious Disease History Infectious Disease History: Reports: Chicken Pox, Measles, Mumps, Novel Coronavirus - Past Surgical History Head Surgeries/Procedures: Reports: None HEENT Surgical History: Reports: None Cardiovascular Surgical History: Reports: None Respiratory Surgical History: Reports: None GI Surgical History: Reports: None Male Surgical History: Reports: Prostatectomy Endocrine Surgical History: Reports: None Neurological Surgical History: Reports: None Musculoskeletal Surgical History: Reports: None Oncologic Surgical History: Reports: None Dermatological Surgical History: Reports: None Social & Family History - Family History Family Medical History: No Pertinent Family History - Tobacco Use Tobacco Use Status *Q: Never Tobacco User - Caffeine Use Caffeine Use: Reports: Coffee - Recreational Drug Use Recreational Drug Use: No ED ROS GENERAL - Review of Systems Review Of Systems: Comprehensive ROS is negative, except as noted in HPI. ED EXAM, GENERAL - Physical Exam Exam: See Below Exam Limited By: No Limitations General Appearance: Alert, WD/WN, No Apparent Distress Ears: Hearing Grossly Normal Nose: Normal Inspection Throat/Mouth: Normal Voice, No Airway Compromise Head: Atraumatic, Normocephalic Respiratory/Chest: No Respiratory Distress, Lungs Clear, Normal Breath Sounds, No Accessory Muscle Use Cardiovascular: Normal Peripheral Pulses, Regular Rate, Rhythm, No Edema Extremities: Normal Inspection Neurological: Alert, Normal Cognition, Normal Gait Psychiatric: Normal Affect, Normal Mood Skin Exam: Warm, Dry, Intact, Normal Color #1 Interpretation EKG Date: 11/10/20 Time: 22:19 Rhythm: NSR Rate (Beats/Min): 66 Waldron: Normal P-Wave: Present QRS: Normal ST-T: Normal QT: Normal AL/PQ Interval: 198 EKG Interpretation Comments: normal EKG Course - Vital Signs Last Recorded V/S: Last Vital Signs Temp 97.9 F 11/10/20 22:21 Pulse 66 11/10/20 22:21 Resp 18 11/10/20 22:21 BP 138/94 H 11/10/20 22:21 Pulse Ox 97 11/10/20 22:21 Orthostatic Blood Pressure [ 117/84 Standing] Orthostatic Blood Pressure [ 122/92 Sitting] Orthostatic Blood Pressure [ 130/89 Supine] - Orders/Labs/Meds Orders: Active Orders 24 hr Category Date Time Status Cardiac Monitoring [RC] . DIRECTED Care 11/10/20 22:44 Active EKG Documentation Completion [RC] STAT Care 11/10/20 22:44 Active Orthostatic Vital Signs [RC] ASDIRECTED Care 11/10/20 22:44 Active Sodium Chloride 0.9% [Normal Saline] 1,000 ml Med 11/10/20 22:44 Active IV .Bolus Sodium Chloride 0.9% [Saline Flush] Med 11/10/20 22:44 Active 10 ml FLUSH ASDIRECTED PRN Sodium Chloride 0.9% [Saline Flush] Med 11/10/20 22:44 Active 2.5 ml FLUSH ASDIRECTED PRN Saline Lock Insert [OM.PC] Stat Oth 11/10/20 22:44 Ordered Medication Orders Sodium Chloride (Normal Saline) 1,000 mls @ 999 mls/hr IV .Bolus ONE Stop: 11/10/20 23:44 Last Admin: 11/10/20 23:09 Dose: 999 mls/hr Documented by: [employer] Sodium Chloride (Sodium Chloride 0.9% 10 Ml Syringe) 10 ml FLUSH ASDIRECTED PRN PRN Reason: Keep Vein Open Last Admin: 11/10/20 23:10 Dose: 10 ml Documented by: [employer] Sodium Chloride (Sodium Chloride 0.9% 2.5 Ml Syringe) 2.5 ml FLUSH ASDIRECTED PRN PRN Reason: Keep Vein Open Last Admin: 11/10/20 23:09 Dose: 2.5 ml Documented by: STEFFI Labs: Laboratory Tests 11/10/20 11/10/20 11/10/20 Range/Units 22:35 22:35 22:35 WBC 5.90 (4.0-11.0) K/uL RBC 4.48 L (4.50-5.90) M/uL Hgb 13.6 (13.0-17.0) g/dL Hct 40.0 (38.0-50.0) % MCV 89.3 (80.0-98.0) fL MCH 30.4 (27.0-32.0) pg MCHC 34.0 (31.0-37.0) g/dL RDW Std Deviation 45.7 (28.0-62.0) fl RDW Coeff of Srinivasa 14 (11.0-15.0) % Plt Count 184 (150-400) K/uL MPV 10.90 (7.40-12.00) fL Neut % (Auto) 60.7 (48.0-80.0) % Lymph % (Auto) 25.6 (16.0-40.0) % Nash % (Auto) 9.5 (0.0-15.0) % Eos % (Auto) 3.9 (0.0-7.0) % Baso % (Auto) 0.3 (0.0-1.5) % Neut # (Auto) 3.6 (1.4-5.7) K/uL Lymph # (Auto) 1.5 (0.6-2.4) K/uL Nash # (Auto) 0.6 (0.0-0.8) K/uL Eos # (Auto) 0.2 (0.0-0.7) K/uL Baso # (Auto) 0.0 (0.0-0.1) K/uL Nucleated RBC % 0.0 /100WBC Nucleated RBCs # 0 K/uL Sodium 144 (136-148) mmol/L Potassium 3.8 (3.5-5.1) mmol/L Chloride 106 (98-107) mmol/L Carbon Dioxide 25.7 (21.0-32.0) mmol/L BUN 23 H (7.0-18.0) mg/dL Creatinine 1.3 (0.8-1.3) mg/dL Est Cr Clr Drug Dosing 88.22 mL/min Estimated GFR (MDRD) 57.1 ml/min Glucose 130 H (74-106) mg/dL Calcium 9.3 (8.5-10.1) mg/dL Magnesium 2.0 (1.8-2.4) mg/dL Total Bilirubin 0.3 (0.2-1.0) mg/dL AST 20 (15-37) IU/L ALT 41 (14-63) IU/L Alkaline Phosphatase 89 (46-116) U/L Troponin I < 0.050 (0.000-0.056) ng/mL B-Natriuretic Peptide 33 (<100) PG/ML Total Protein 6.9 (6.4-8.2) g/dL Albumin 3.6 (3.4-5.0) g/dL Globulin 3.3 (2.6-4.0) g/dL Albumin/Globulin Ratio 1.1 (0.9-1.6) TSH 3rd Generation 4.50 H (0.36-3.74) uIU/mL Meds: Medications Generic Name Dose Route Start Last Admin Trade Name Freq PRN Reason Stop Dose Admin Sodium Chloride 1,000 mls @ 999 mls/hr 11/10/20 22:44 11/10/20 23:09 Normal Saline IV 11/10/20 23:44 999 mls/hr .Bolus ONE Administration Sodium Chloride 10 ml 11/10/20 22:44 11/10/20 23:10 Sodium Chloride 0.9% 10 Ml Syringe FLUSH 10 ml ASDIRECTED PRN Administration Keep Vein Open Sodium Chloride 2.5 ml 11/10/20 22:44 11/10/20 23:09 Sodium Chloride 0.9% 2.5 Ml Syringe FLUSH 2.5 ml ASDIRECTED PRN Administration Keep Vein Open - Re-Assessments/Exams Free Text/Narrative Re-Assessment/Exam: 11/10/20 22:47 We will get labs, will give IV fluid bolus, will place on continuous cardiopulmonary monitoring to assess for any periods of bradycardia, will get orthostatic vitals. We will follow up results and if unremarkable will likely discharge patient with Zio patch and cardiology follow-up. 11/10/20 23:27 Labs unremarkable. Chest x-ray does show some bibasilar atelectasis but nothing clinically significant. I will discharge patient with prescription given to respiratory therapy to come back in the morning to have Zio patch placed for 2 weeks for periods of bradycardia and will place patient on cardiology follow-up list. I will have the results of the Zio patch forwarded to Dr. Santacruz Departure - Departure Time of Disposition: 23:27 Disposition: Home, Self-Care 01 Condition: Good Clinical Impression: Cardiac dysrhythmia, unspecified Qualifiers: Arrhythmia type: unspecified cardiac arrhythmia Qualified Code(s): I49.9 - Cardiac arrhythmia, unspecified - Discharge Information Instructions: Nonspecific Chest Pain, Adult, [id number] Referrals: Jonatan Gabriel ASSISTANT RESEARCH SCIENTIST [Primary Care Provider] - Forms: ED Department Discharge Additional Instructions: Your work-up in the emergency department was unremarkable. However I am concerned about these episodes of bradycardia that you are experiencing and you will need to follow-up with a compressed air pile driver operator. I have given our respiratory therapist a prescription for you for a Zio patch which is kind of like a Holter monitor which is kind of like a continuous EKG that you wear for 2 weeks. These results will be forwarded to our local compressed air pile driver operator Dr. Slaughter. Information for him is provided below and you were also placed on his follow-up list so they should be reaching out to you for an appointment. The respiratory therapist should call you tomorrow morning and you can come back to the hospital at some point tomorrow to have the Zio patch placed. I apologize that we are unable to do it tonight as I had initially thought. [facility] [address] [place] [id number] The following information is given to patients seen in the emergency department who are being discharged to home. This information is to outline your options fo r follow-up care. We provide all patients seen in our emergency department with a follow-up referral. The need for follow-up, as well as the timing and circumstances, are variable depending upon the specifics of your emergency department visit. If you don't have a primary care physician on staff, we will provide you with a referral. We always advise you to contact your personal physician following an emergency department visit to inform them of the circumstance of the visit and for follow-up with them and/or the need for any referrals to a consulting specialist. The emergency department will also refer you to a specialist when appropriate. This referral assures that you have the opportunity for follow-up care with a specialist. All of these measure are taken in an effort to provide you with optimal care, which includes your follow-up. Under all circumstances we always encourage you to contact your private physician who remains a resource for coordinating your care. When calling for follow-up care, please make the office aware that this follow-up is from your recent emergency room visit. If for any reason you are refused follow-up, please contact the [facility] Emergency Department at and asked to speak to the emergency department charge nurse. Please follow up with your primary care physician. If you do not have a primary care physician, see below: [facility] [address], [place] [id number] My [facility] [address], [place] [id number] [facility] [address] [place] [address] Sepsis Event Note (ED) - Evaluation Sepsis Screening Result: No Definite Risk - Focused Exam Vital Signs: Vital Signs Temp Pulse Resp BP Pulse Ox 11/10/20 22:21 97.9 F 66 18 138/94 H 97 - My Orders Last 24 Hours: My Active Orders 11/10/20 22:44 Cardiac Monitoring [RC] . DIRECTED EKG Documentation Completion [RC] STAT Orthostatic Vital Signs [RC] ASDIRECTED Sodium Chloride 0.9% [Normal Saline] 1,000 ml IV .Bolus Sodium Chloride 0.9% [Saline Flush] 10 ml FLUSH ASDIRECTED PRN Sodium Chloride 0.9% [Saline Flush] 2.5 ml FLUSH ASDIRECTED PRN Saline Lock Insert [OM.PC] Stat - Assessment/Plan Last 24 Hours: My Active Orders 11/10/20 22:44 Cardiac Monitoring [RC] . DIRECTED EKG Documentation Completion [RC] STAT Orthostatic Vital Signs [RC] ASDIRECTED Sodium Chloride 0.9% [Normal Saline] 1,000 ml IV .Bolus Sodium Chloride 0.9% [Saline Flush] 10 ml FLUSH ASDIRECTED PRN Sodium Chloride 0.9% [Saline Flush] 2.5 ml FLUSH ASDIRECTED PRN Saline Lock Insert [OM.PC] Stat
[2020-11-10] MEDS ORDERED: Sodium Chloride 0.9% 1,000 ML IV ONE (22:44)
[2020-11-10] MEDS ORDERED: Sodium Chloride 0.9% 10 ML Syringe FLUSH PRN (22:44)
[2020-11-10] MEDS ORDERED: Sodium Chloride 0.9% 2.5 ML Syringe FLUSH PRN (22:44)
[2020-11-10 23:10] LABS: BLOOD UREA NITROGEN,BUN 23 mg/dL (7.0-18.0); CARBON DIOXIDE,CO2 25.7 mmol/L (21.0-32.0); CHLORIDE,CL 106 mmol/L (98-107); GLUCOSE RANDOM 130 mg/dL (74-106); POTASSIUM,K 3.8 mmol/L (3.5-5.1); SODIUM,NA 144 mmol/L (136-148)
--- NOTE | 2020-11-10 23:21 | CR ---
INDICATION: Bradycardia TECHNIQUE: Chest radiograph 1 view COMPARISON: 04/05/2020 FINDINGS: Moderate degradation of image quality noted due to body habitus. Mediastinum: The mediastinum is normal in appearance. The heart silhouette is normal in size and morphology. Lung: Mild bibasilar subsegmental atelectasis is noted with small lung volumes. No sign of pleural effusion seen. No pneumothorax is identified. Bone and Soft tissue: Unremarkable for age. IMPRESSION: 1. Mild bibasilar subsegmental atelectasis is noted with small lung volumes. Dictated by: Clay Brennan MD @ 11/10/2020 23:20:44 (Electronically Signed)
== END 2020-11-10 23:40 | disposition home or self-care (01) ==
LOC: MW.ED 22:14
DX: I49.9 Cardiac arrhythmia, unspecified (principal); E03.9 Hypothyroidism, unspecified; Z79.82 Long term (current) use of aspirin; Z79.899 Other long term (current) drug therapy
CPT/HCPCS: 36415; 71045; 80053; 83735; 83880; 84443; 84484; 85025; 93005; 99285; J7030; 93010; 99284